=== PATIENT | female | born 1965 | race Caucasian/White ===

== ENCOUNTER 2016-07-11 17:10 | Emergency (ER) | payer OTHER, MEDICAID ==
[2016-07-11 17:33] VITALS: TEMP 98
[2016-07-11] MEDS ORDERED: NS 1,000 ML IV ONE (17:47)
[2016-07-11 17:56] LABS: % IMMATURE GRANULYOCYTES 0.9 % (0.0-1.1); ABSOLUTE IMMATURE GRANULOCYTES 0.06 10^3/uL (0.00-0.10); ADD DIFF? NO; ADD MORPH? NO; ADD SCAN? NO; ATYPICAL LYMPHOCYTE FLAG 10 (0-99); FRAGMENT RBC FLAG 0 (0-99); HEMATOCRIT 57.4 % (38.0-47.0); HEMOGLOBIN 19.8 g/dL (12.6-16.3); LEFT SHIFT FLG 0 (0-99); LIPEMIA HEMOLYSIS FLAG 90 (0-99); MEAN CELL HEMOGLOBIN 35.4 pg (27.9-34.1); MEAN CELL HEMOGLOBIN CONCENTR. 34.5 g/dL (32.4-36.7); MEAN CELL VOLUME 102.5 fL (81.5-99.8); MEAN PLATELET VOLUME 9.5 fL (8.7-11.7); PLATELET CLUMPS FLAG 0 (0-99); PLATELET COUNT 342 10^3/uL (150-400); RED CELL DISTRIBUTION WIDTH 13.6 % (11.5-15.2)
--- NOTE | 2016-07-11 18:04 | CPEKG ---
Heart Rate: 78 RR Interval: 769 P-R Interval: 144 QRSD Interval: 78 QT Interval: 408 QTC Interval: 465 P [place]: 48 QRS [place]: 76 T Wave [place]: 13 EKG Severity - ABNORMAL ECG - EKG Impression: SINUS RHYTHM EKG Impression: CONSIDER LEFT VENTRICULAR HYPERTROPHY EKG Impression: BORDERLINE INFERIOR Q WAVES Electronically Signed By: Fabrice Hall 13-Jul-2016 19:17:36
[2016-07-11 18:07] LABS: INR 0.95 (0.83-1.16); PROTIME(PATIENT) 12.5 SEC (12.0-15.0)
[2016-07-11 18:08] LABS: APTT 36.3 SEC (23.0-38.0)
[2016-07-11 18:14] VITALS: BP 151/78; PULSE 85; RESP 18
[2016-07-11 18:16] LABS: ALANINE AMINOTRANSFERASE 21 IU/L (9-52); ALBUMIN 4.4 g/dL (3.5-5.0); ALKALINE PHOSPHATASE 76 IU/L (38-126); ANION GAP 12 mEq/L (8-16); ASPARTATE AMINOTRANSFERASE 17 IU/L (14-46); BILIRUBIN,TOTAL 0.9 mg/dL (0.1-1.4); BILIRUBIN-CONJUGATED 0.4 mg/dL (0.0-0.5); BILIRUBIN-UNCONJUGATED 0.5 mg/dL (0.0-1.1); CALCIUM 9.8 mg/dL (8.5-10.4); CARBON DIOXIDE 28 mEq/l (22-31); CHLORIDE 103 mEq/L (97-110); CREATININE 0.7 mg/dL (0.6-1.0); GLOMERULAR FILTRATION RATE > 60; GLUCOSE 95 mg/dL (70-100); POTASSIUM 3.8 mEq/L (3.5-5.2); SODIUM 143 mEq/L (134-144); TOTAL PROTEIN 7.5 g/dL (6.3-8.2)
[2016-07-11 18:22] LABS: TROPONIN I < 0.012 ng/mL (0-0.034)
--- NOTE | 2016-07-11 19:06 | DX ---
PA and Lateral Chest History: Shortness of breath.. Comparison: Thoracic spine June 29, 2015, PA and lateral chest November 12, 2014. Findings: There is mild peribronchial thickening with basilar atelectasis without focal consolidation . There is no pneumothorax or pleural effusion. There is mild cardiomegaly without significant pulmon tracy vascular congestion. Mild degenerative change is present in the spine. Cervical fusion hardware i s incompletely visualized. Impression: 1. Bronchitis with mild basilar atelectasis. 2. Mild cardiomegaly.
--- NOTE | 2016-07-11 19:20 | CT ---
CT Abdomen and Pelvis, Without Contrast Indication: Abdominal bloating and distention. Technique: Multidetector helical CT imaging was performed from the kidneys to the urinary bladder, w ithout contrast. Dose reduction techniques were utilized. IV contrast was not administered due to i odinated contrast ALLERGY. Findings: No ascites, lymphadenopathy, mass, or pneumoperitoneum. The bowel gas pattern is normal, with the exception of moderate constipation. The appendix appears t o be surgically absent, with suture material along the medial aspect of the cecum. The noncontrast liver and spleen are normal size. The pancreas, gallbladder, adrenal glands, and kid neys are normal. No hydronephrosis, nephrolithiasis, or ureteral calculi. The urinary bladder is no rmal. The uterus is surgically absent versus atrophic. No adnexal mass. The heart size is normal. The lung bases have minimal posterior dependent atelectasis. The abdomina l aorta is normal caliber, with mild calcified plaque. Mild degenerative disk disease is present at L1-L2. No bone lesion or pars defect. IMPRESSION: 1. No ascites, lymphadenopathy, mass, or localized intraabdominal inflammatory process. 2. Normal noncontrast solid organs. No evidence of biliary obstruction. 3. Constipation. Comment: The case was discussed with Dr. De at 7:00 p.m. on July 11, 2016. Attention: This CT examination is specifically designed to evaluate patients who are clinically susp ected of having acute obstructive uropathy. This examination does not use radiographic contrast, and as such, provides only a limited evaluation of the abdomen, pelvis and retroperitoneum. If there i s further clinical suspicion for pathological conditions other than obstructive uropathy, a complete CT evaluation of the abdomen and pelvis utilizing intravenous, oral, and rectal contrast should be co nsidered. E:RH/amm
--- NOTE | 2016-07-11 19:53 | UCPHY ---
H & P Patient Type: Established Chief Complaint Nursing Narrative: sent from Dr. Dover office for R/O SBO/ Pancreatitis/Hepitis/GB - C/O RUQ pain with bloating/Full feeling/not feeling well with michelle colored stools x 1.5 wks- told she would be admited to hospital Time Seen by Provider: 07/11/16 17:31 HPI/ROS: CHIEF COMPLAINT: Multiple complaints, referred here from Dr. Nena Beatty's office HISTORY OF PRESENT ILLNESS: This is a 51-year-old female with history of pulmonary embolisms on Xarelto, history of chronic back pain, hyperlipidemia, COPD, O2 dependency who continue smoking, and hysterectomy who went to see her primary care physician for routine check today. She did report to her physician that she was complaining of right upper quadrant discomfort, bloating , generalized abdominal pain, and rust colored stools. Patient was referred to urgent care for further evaluation to include potential evaluation for hepatitis , pancreatitis, or bowel obstruction. Patient denies any fevers or chills. She does report shortness of breath with dyspnea on exertion and orthopnea. She reports peripheral edema although not present today. No palpitations, headache, lightheadedness, or diarrhea. Patient tells me she continues to smoke and does not wear her home O2. REVIEW OF SYSTEMS: Aside from elements discussed in the HPI, a comprehensive 10-point review of systems was reviewed and is negative. PAST MEDICAL HISTORY: Chronic back pain, hyperlipidemia, COPD, hysterectomy, pulmonary embolisms SOCIAL HISTORY: Smoker. Denies alcohol use VITAL SIGNS Reviewed by me. o2 sats as low as 77% on room air. Patient reports that she is supposed to wear between 2 L at home, on 2 L O2 sat is 94% GENERAL: Chronically ill-appearing. HEENT: Atraumatic. Eyes: No icterus, no injection. Mouth: Very dry mucous membranes. No erythema or lesions. Neck: supple with no adenopathy. LUNGS: Clear to auscultation bilaterally, no wheezes, rhonchi or rales. CARDIAC: Regular rate and rhythm, no rubs, murmurs or gallops. ABDOMEN: Soft, slightly distended, diffusely tender throughout, no guarding or rebound. No fluid wave appreciated by myself. BACK: No CVA tenderness. EXTREMITIES: No trauma. No edema. Range of motion is normal throughout. NEURO: Alert and oriented, grossly nonfocal. SKIN: Warm and dry, no rash. PSYCHIATRIC: [Normal mentation, no agitation. - Personal History Current Tetanus Diphtheria and Acellular Pertussis (TDAP): Yes Tetanus Vaccine Date: WITHIN 10 YRS - Medical/Surgical History Hx Asthma: Yes Hx Chronic Respiratory Disease: Yes Hx Diabetes: No Hx Cardiac Disease: No Hx Renal Disease: No Hx Cirrhosis: No Hx Alcoholism: No Hx HIV/AIDS: No Hx Splenectomy or Spleen Trauma: No Other PMH: Chronic pain. COPD,bipolar, hypertension, hyperlipidemia, hysterectomy, with a surgery, lower extremity DVT with PE's. appendectomy, angiograms - Family History Significant Family History: No pertinent family hx - Social History Smoking Status: Current every day smoker Constitutional: Initial Vital Signs Temperature (C) 36.6 C 07/11/16 17:15 Heart Rate 90 07/11/16 17:15 Respiratory Rate 22 H 07/11/16 17:15 Blood Pressure 132/108 H 07/11/16 17:15 O2 Sat (%) 88 L 07/11/16 17:15 O2 Delivery Mode Room Air O2 (L/minute) 2 Allergies/Adverse Reactions: morphine Allergy (Unknown, Verified 06/29/15 19:46) Iodinated Contrast Media - Oral and Allergy (Verified 06/29/15 19:46) Sulfa (Sulfonamide Antibiotics) Allergy (Verified 06/29/15 19:46) Home Medications: Medication Instructions Recorded lamOTRIGine [LamICTAL] 07/13/11 Albuterol Sulfate [Ventolin] 5 mg IH 03/13/12 Fluticasone/Salmeter 250/50Mcg 1 puffs IH BIDI 03/13/12 [Advair] Warfarin Sodium [Coumadin 5MG (RX)] 5 mg PO DAILY16 03/13/12 oxyCODONE CR [Oxycontin] 80 mg 08/04/12 oxyCODONE IR [Oxycodone HCl Ir] 30 mg 08/04/12 Captopril 10/18/14 Gemfibrozil 10/18/14 Cymbalta 30 MG (RX) 06/29/15 Ranitidine HCl 07/11/16 Medical Decision Making - Diagnostics Imaging: Results: CT scan of the abdomen pelvis was obtained. I viewed the images independently on the PACS system. I discussed the results of the study with the radiologist. Impression: No hepatomegaly or splenomegaly, no bowel obstruction, no evidence for ovarian carcinoma, no ascites. Please see the full radiology report. X-ray: Chest x-ray was obtained. I viewed the images myself on the PACS system. My interpretation of the images is: Mild cardiomegaly, no evidence for congestive failure. The radiologist interpretation is pending at this time. I discussed the x-ray findings with the patient. ED Course/Re-evaluation: 51-year-old female presenting reporting that she was referred by Dr. Nena Beatty. Patient's primary complaint is of abdominal pain and she is concerned that Dr. Beatty noted jaundice. Patient had IV placed. Laboratory evaluation demonstrates a negative troponin, normal BMP, given normal lipase, normal liver function tests, normal kidney function, hemoglobin hematocrit significantly elevated secondary to the patient' s chronic hypoxemia. CT scan demonstrates no acute findings other than constipation. I discussed the CT results with the patient. I feel the patient is safe to be discharged home. She should follow up with Dr. Nena Beatty. She was instructed to use magnesium citrate for her constipation. I discussed with the patient the importance of wearing her O2. I explained that her elevated hemoglobin and hematocrit put her at significant risk for strokes, TIAs , heart attacks, and other unforeseen complications. Please see the discharge instructions. Differential Diagnosis: After obtaining the patient's history and performing an examination, differential diagnosis considered included but was not limited to cholecystitis , gastritis, pancreatitis, hepatitis, electrolyte abnormalities, ascites, liver failure, constipation and other causes. - Data Points Laboratory Results: Laboratory Results 07/11/16 17:50 07/11/16 17:50 07/11/16 17:50 WBC 7.03 10^3/uL (3.80-9.50) RBC 5.60 H 10^6/uL (4.18-5.33) Hgb 19.8 H g/dL (12.6-16.3) Hct 57.4 H % (38.0-47.0) MCV 102.5 H fL (81.5-99.8) MCH 35.4 H pg (27.9-34.1) MCHC 34.5 g/dL (32.4-36.7) RDW 13.6 % (11.5-15.2) Plt Count 342 10^3/uL (150-400) MPV 9.5 fL (8.7-11.7) Neut % (Auto) 45.1 % (39.3-74.2) Lymph % (Auto) 41.0 % (15.0-45.0) [place] % (Auto) 8.5 % (4.5-13.0) Eos % (Auto) 3.6 % (0.6-7.6) Baso % (Auto) 0.9 % (0.3-1.7) Nucleat RBC Rel Count 0.0 % (0.0-0.2) Absolute Neuts (auto) 3.18 10^3/uL (1.70-6.50) Absolute Lymphs (auto) 2.88 10^3/uL (1.00-3.00) Absolute Monos (auto) 0.60 10^3/uL (0.30-0.80) Absolute Eos (auto) 0.25 10^3/uL (0.03-0.40) Absolute Basos (auto) 0.06 10^3/uL (0.02-0.10) Absolute Nucleated RBC 0.00 10^3/uL (0-0.01) Immature Gran % 0.9 % (0.0-1.1) Immature Gran # 0.06 10^3/uL (0.00-0.10) PT 12.5 SEC (12.0-15.0) INR 0.95 (0.83-1.16) APTT 36.3 SEC (23.0-38.0) Sodium 143 mEq/L (134-144) Potassium 3.8 mEq/L (3.5-5.2) Chloride 103 mEq/L (97-110) Carbon Dioxide 28 mEq/l (22-31) Anion Gap 12 mEq/L (8-16) BUN 19 mg/dL (7-23) Creatinine 0.7 mg/dL (0.6-1.0) Estimated GFR > 60 Glucose 95 mg/dL (70-100) Calcium 9.8 mg/dL (8.5-10.4) Total Bilirubin 0.9 mg/dL (0.1-1.4) Conjugated Bilirubin 0.4 mg/dL (0.0-0.5) Unconjugated Bilirubin 0.5 mg/dL (0.0-1.1) AST 17 IU/L (14-46) ALT 21 IU/L (9-52) Alkaline Phosphatase 76 IU/L (38-126) Troponin I < 0.012 ng/mL (0-0.034) NT-Pro-B Natriuret Pep 23 pg/mL (0-125) Total Protein 7.5 g/dL (6.3-8.2) Albumin 4.4 g/dL (3.5-5.0) Lipase 22.0 L IU/L (23-300) Medications Given: Discontinued Medications Sodium Chloride (Ns) 1,000 mls @ 0 mls/hr IV ONCE ONE PRN Reason: Wide Open Stop: 07/11/16 17:48 Last Admin: 07/11/16 18:08 Dose: 1,000 mls Magnesium Citrate (Magnesium Citrate) 300 ml PO ONCE ONE Stop: 07/11/16 19:56 Last Admin: 07/11/16 19:58 Dose: 300 mg Departure - Departure Disposition: Home, Routine, Self-Care Clinical Impression: Abdominal pain, Bloating, Constipation Condition: Good Instructions: Constipation (ED), High Fiber Diet (ED) Additional Instructions: There is no sign of fluid in your abdomen on the CT scan. The labs do not indicate any pancreatitis, or hepatitis. Your CT scan does demonstrate constipation. Please take the magnesium sulfate as directed. Drink half the bottle tomorrow morning. If you do not have significant amount of stool output in 4 hours, you may drink the other half. Your labs are quite concerning for a very high hemoglobin and hematocrit. This is most likely due to the fact that you ARE not wearing your oxygen and are hypoxic most of the time. You understand the importance of wearing your oxygen. Very high hemoglobin hematocrit can lead to multiple medical problems including heart attacks and strokes. DO NOT WEAR OXYGEN IF/WHEN YOU ARE SMOKING. Referrals: Nena Beatty MD [Primary Care Provider] - As per Instructions - PQRS PQRS Measurement: 134: Depression screening and followup, PRIME AGOSTO-PHQ2 (12 years and older) Over the last 2 weeks, how often have you been bothered by any of the following problems? 1. Feeling down, depressed, or hopeless? 2. Little interest or pleasure in doing things? Patient answered no to both 1 and 2 130: Documentation of medications. Reviewed all patient medications, doses, route and frequency. 226: Do you smoke? Yes, counseled to stop. 47: 65 and older: Advanced care planning. Patient refused. 51: 18 years old and older with diagnosis of COPD, spirometry performance. Spirometry not performed; equipment not available. 52: 18 years old and older with COPD and symptoms of COPD or FEV1<60% predicted prescribed a B Agonist. Spirometry not performed; equipment not available.
[2016-07-11] MEDS ORDERED: MAGNESIUM CITRATE 300 ML BOTTLE PO ONE (19:55)
[2016-07-11 20:02] VITALS: O2SAT 88
== END 2016-07-11 19:58 | disposition home or self-care (01) ==
LOC: CED 17:10
DX: K59.00 Constipation, unspecified (principal); R10.11 Right upper quadrant pain; M54.9 Dorsalgia, unspecified; E78.5 Hyperlipidemia, unspecified; J44.9 Chronic obstructive pulmonary disease, unspecified; Z72.0 Tobacco use; Z86.711 Personal history of pulmonary embolism
CPT/HCPCS: 71020; 74176; 93005; 96360; G0463; 80048-PO; 80076-PO; 83690-PO; 83880-PO; 84484-PO; 85025-PO; 85610-PO; 85730-PO

== ENCOUNTER → 2016-12-05 | Outpatient (CLI) | payer OTHER, MEDICAID | LOC: CIMAGING 13:53 | PROVIDERS: ATTEND Family Medicine | DX: Z12.31 Encounter for screening mammogram for malignant neoplasm of breast (principal); M50.30 Other cervical disc degeneration, unspecified cervical region; M99.71 Connective tissue and disc stenosis of intervertebral foramina of cervical region; M89.38 Hypertrophy of bone, other site | CPT/HCPCS: 72125-PO; G0202 ==

== ENCOUNTER → 2017-04-18 | Outpatient (CLI) | payer OTHER, MEDICAID | LOC: CIMAGING 11:45 | PROVIDERS: ATTEND Family Medicine | DX: R91.8 Other nonspecific abnormal finding of lung field (principal) | CPT/HCPCS: 71020-PO ==

== ENCOUNTER 2017-07-04 17:25 | Inpatient (IN) | payer OTHER, MEDICAID ==
[2017-07-04] MEDS ORDERED: NS 1,000 ML IV ONE (18:05)
[2017-07-04] MEDS ORDERED: METOCLOPRAMIDE 10 MG/2 ML VIAL IVP ONE (18:05)
--- NOTE | 2017-07-04 18:11 | EDPHY ---
H & P Stated Complaint: pt has back issues with increased neuro sx over the last few weeks Time Seen by Provider: 07/04/17 17:55 HPI/ROS: CHIEF COMPLAINT: Whole body pain HISTORY OF PRESENT ILLNESS: The patient is a 52-year-old female who was sent by Dr. Capone from Neurosurgery for an MRI of her spine. The patient has a history of chronic pain and bipolar and cervical stenosis status post fusion in 2013. She reports that she began falling frequently in December and has buckling of her right knee and weakness. She saw her primary DrJoaquín who ordered a CT scan of her neck in November. No significant injuries were found. She states that her symptoms have persisted since and she occasionally has some incontinence as well. Today she was seen at the [facility] and Dr. Capone felt that she had weakness in all 4 extremities with decreased reflexes and trouble walking. Patient denies fevers or chills or sweats. No chest pain or shortness of breath. She does have a headache which she states happens very frequently. REVIEW OF SYSTEMS: Constitutional: denies: chills, fever, recent illness, recent injury EENTM: denies: blurred vision, double vision, nose congestion Respiratory: denies: cough, shortness of breath Cardiac: denies: chest pain, irregular heart rate, lightheadedness, palpitations Gastrointestinal/Abdominal: denies: abdominal pain, diarrhea, nausea, vomiting, blood streaked stools Genitourinary: denies: dysuria, frequency, hematuria, pain Musculoskeletal: See HPI Skin: denies: lesions, rash, jaundice, bruising Neurological: See HPI Hematologic/Lymphatic: denies: blood clots, easy bleeding, easy bruising Immunologic/allergic: denies: HIV/AIDS, transplant EXAM: GENERAL: no acute distress. HEAD: Atraumatic, normocephalic. EYES: Pupils equal round and reactive to light, extraocular movements intact, sclera anicteric, conjunctiva are normal. ENT: TMs normal, nares patent, oropharynx clear without exudates. Moist mucous membranes. NECK: Normal range of motion, supple without lymphadenopathy or JVD. LUNGS: Breath sounds clear to auscultation bilaterally and equal. No wheezes rales or rhonchi. HEART: Regular rate and rhythm without murmurs, rubs or gallops. ABDOMEN: Soft, nontender, normoactive bowel sounds. No guarding, no rebound. No masses appreciated. BACK: No CVA tenderness, no spinal tenderness, step-offs or deformities EXTREMITIES: Normal range of motion, no pitting or edema. No clubbing or cyanosis. NEUROLOGICAL: Cranial nerves II through XII grossly intact. Normal speech, unsteady gait favoring right knee. 4/5 strength diffusely, normal sensation PSYCH: Normal mood, normal affect. SKIN: Warm, dry, normal turgor, no visible rashes or lesions. Source: Patient Exam Limitations: No limitations - Personal History LMP (Females 10-55): Hysterectomy Current Tetanus Diphtheria and Acellular Pertussis (TDAP): Yes Tetanus Vaccine Date: WITHIN 10 YRS - Medical/Surgical History Hx Asthma: Yes Hx Chronic Respiratory Disease: Yes Hx Diabetes: No Hx Cardiac Disease: No Hx Renal Disease: No Hx Cirrhosis: No Hx Alcoholism: No Hx HIV/AIDS: No Hx Splenectomy or Spleen Trauma: No Other PMH: Chronic pain. COPD,bipolar, hypertension, hyperlipidemia, hysterectomy, PE. appendectomy, cervical fusion - Family History Significant Family History: No pertinent family hx - Social History Smoking Status: Current every day smoker Alcohol Use: Sober Drug Use: None Constitutional: Initial Vital Signs Temperature (C) 36.8 C 07/04/17 17:30 Heart Rate 95 07/04/17 17:30 Respiratory Rate 18 07/04/17 17:30 Blood Pressure 166/115 H 07/04/17 17:30 O2 Sat (%) 93 07/04/17 17:30 O2 Delivery Mode Room Air Allergies/Adverse Reactions: morphine Allergy (Mild, Verified 07/07/17 10:00) Rash Iodinated Contrast- Oral and IV Dye Allergy (Verified 06/29/15 19:46) Sulfa (Sulfonamide Antibiotics) Allergy (Verified 06/29/15 19:46) Home Medications: Medication Instructions Recorded oxyCODONE CR [Oxycontin] 80 mg PO BID 08/04/12 oxyCODONE IR [Oxycodone HCl Ir] 30 mg PO Q4H PRN 08/04/12 Captopril 25 mg PO TID 10/18/14 Gemfibrozil [Lopid 600 MG (*)] 600 mg PO BIDAC 10/18/14 DULoxetine [Cymbalta 60 MG (*)] 60 mg PO DAILY 06/29/15 Ranitidine HCl [Zantac] 300 mg PO DAILY 07/11/16 Rivaroxaban [Xarelto] 20 mg PO DAILY@18 07/04/17 lamoTRIgine [Lamictal] 150 mg PO BID 07/04/17 Medical Decision Making - Diagnostics Imaging: Discussed imaging studies w/ pipe coverer Radiologist ED Course/Re-evaluation: The patient has significant spinal stenosis with cord compression and edema level 3 4. She states that she hates steroids because they gave her palpitations. I will discussed the case with Neurosurgery. 8:20 p.m. I discussed the case with Dr. Topete. He will admit the patient and requests hospitalist consult for med clearance patient is on Xarelto for history of DVT. She will have to hold this. They do not want to give her steroids. 9:00 p.m. I discussed the case with Dr. Greer who will admit to the medical service. Differential Diagnosis: Partial list of the Differential diagnosis considered include but were not limited to; cord compression, migraine, infection and although unlikely based on the history and physical exam, I also considered trauma, hematoma, dissection. Critical Care Time: Critical care time spent by me, Dr. Baker exclusive with this patient was 35 minutes, exclusive of the PA time exclusive of procedures. The organ system that was at risk was neurologic and I gave diagnosis, treatment and consultation and admission. to prevent worsening of the patient's condition - Data Points Laboratory Results: Laboratory Results 07/04/17 19:42 07/04/17 19:42 Medications Given: Dexamethasone (Decadron Injection) 4 mg IVP Q8 [facility] Stop: 07/07/17 22:01 Last Admin: 07/07/17 13:39 Dose: 4 mg Diazepam (Valium) 5 mg PO Q6HRS PRN PRN Reason: Anxiety, Able to Take PO Stop: 01/02/18 08:30 Last Admin: 07/07/17 13:18 Dose: 5 mg Duloxetine HCl (Cymbalta) 60 mg PO DAILY [facility] Stop: 01/01/18 08:59 Last Admin: 07/07/17 10:56 Dose: Not Given Famotidine (Pepcid) 20 mg PO BID [facility] Stop: 01/01/18 08:59 Last Admin: 07/07/17 10:56 Dose: Not Given Gemfibrozil (Lopid) 600 mg PO BIDAC [facility] Stop: 01/01/18 07:29 Last Admin: 07/07/17 07:38 Dose: Not Given Potassium Chloride/Sodium Chloride (Ns W/ 20 Kcl/L) 1,000 mls @ 75 mls/hr IV CONT SHEN Stop: 12/31/17 20:44 Last Admin: 07/07/17 11:44 Dose: 1,000 mls Cefazolin Sodium (Cefazolin Syringe) 2 gm in 20 mls @ 200 mls/hr IVP Q8H SHEN Stop: 07/07/17 22:05 Last Admin: 07/07/17 13:11 Dose: 20 mls Lamotrigine (Lamictal) 150 mg PO BID [facility] Stop: 01/01/18 09:44 Last Admin: 07/07/17 07:38 Dose: Not Given Lisinopril (Zestril) 10 mg PO DAILY21 [facility] Stop: 01/01/18 20:59 Last Admin: 07/06/17 20:47 Dose: 10 mg Methocarbamol (Robaxin) 750 mg PO TID [facility] Stop: 01/02/18 08:59 Last Admin: 07/07/17 07:39 Dose: Not Given Nicotine (Nicoderm Cq) 21 mg TD DAILY [facility] Stop: 12/31/17 20:44 Last Admin: 07/07/17 11:43 Dose: 21 mg Oxycodone HCl (Oxycontin) 80 mg PO BID [facility] Stop: 07/15/17 20:59 Last Admin: 07/07/17 11:08 Dose: 80 mg Oxycodone HCl (Oxycodone Ir) 30 mg PO Q3 PRN PRN Reason: Pain, Breakthrough Stop: 07/14/17 21:39 Last Admin: 07/07/17 11:07 Dose: 30 mg Discontinued Medications Acetaminophen/Aspirin/Caffeine (Excedrin Tablet) 1 each PO EDNOW ONE Stop: 07/04/17 20:37 Last Admin: 07/04/17 21:50 Dose: Not Given Bacitracin (Bacitracin Syringe) Confirm Administered Dose 100,000 units IRR .STK -MED ONE Stop: 07/07/17 07:23 Last Admin: 07/07/17 08:09 Dose: 100,000 units Chlorhexidine Gluconate (Hibiclens) Confirm Administered Dose 1 btl TP .STK-MED ONE Stop: 07/07/17 07:23 Last Admin: 07/07/17 08:45 Dose: 1 btl Fibrinogen/Thrombin (Surgiflo Matrix Kit With Thrombin) Confirm Administered Dose 8 ml TP .STK-MED ONE Stop: 07/07/17 07:23 Last Admin: 07/07/17 10:14 Dose: Not Given Sodium Chloride (Ns) 1,000 mls @ 0 mls/hr IV ONCE ONE; Wide Open PRN Reason: Protocol Stop: 07/04/17 18:06 Last Admin: 07/04/17 20:09 Dose: 1,000 mls Cefazolin Sodium (Cefazolin Syringe) 2 gm in 20 mls @ 200 mls/hr IVP ONCALL ONE PRN Reason: Protocol Stop: 07/07/17 07:05 Last Admin: 07/07/17 08:33 Dose: 20 mls Lisinopril (Zestril) 5 mg PO EDNOW ONE Stop: 07/05/17 00:51 Last Admin: 07/05/17 01:31 Dose: 5 mg Metoclopramide HCl (Reglan Injection) 10 mg IVP EDNOW ONE Stop: 07/04/17 18:06 Last Admin: 07/05/17 10:19 Dose: Not Given Midazolam HCl (Versed) 1 - 2 mg IVP ONCALL ONE Stop: 07/07/17 07:56 Last Admin: 07/07/17 08:07 Dose: 2 mg Miscellaneous Medication (Captopril [Captopril]) 25 mg PO TID SHEN Stop: 12/31/17 21:59 Last Admin: 07/05/17 10:04 Dose: Not Given Morphine Sulfate (Morphine) 1 - 4 mg IVP Q10M PRN PRN Reason: PACU, PAIN Stop: 07/07/17 10:49 Last Admin: 07/07/17 10:56 Dose: 2 mg Oxycodone HCl (Oxycontin) 80 mg PO ONCE ONE Stop: 07/05/17 01:46 Last Admin: 07/05/17 02:04 Dose: 80 mg Oxycodone HCl (Oxycodone Ir) 30 mg PO Q4H PRN PRN Reason: Pain, Breakthrough Stop: 07/14/17 21:39 Last Admin: 07/07/17 03:21 Dose: 30 mg Thrombin (Thrombin-Jmi) Confirm Administered Dose 20,000 unit TP .STK-MED ONE Stop: 07/07/17 07:23 Last Admin: 07/07/17 08:09 Dose: 20,000 unit Departure - Departure Disposition: [facility] Inpatient Acute Clinical Impression: Spinal cord compression Condition: Fair
[2017-07-04 19:53] LABS: PLATELET COUNT 292 10^3/uL (150-400)
[2017-07-04 20:02] LABS: PROTIME(PATIENT) 13.4 SEC (12.0-15.0)
[2017-07-04] MEDS ORDERED: ACETAMINOPHEN/ASA/CAFFEINE 1 EACH TAB PO ONE (20:36)
[2017-07-04] MEDS ORDERED: HYDROmorphONE/DILAUDID 1 MG/ML INJ IVP PRN (20:38)
[2017-07-04] MEDS ORDERED: ONDANSETRON 4 MG/2 ML VIAL IVP PRN (20:38)
[2017-07-04] MEDS ORDERED: ACETAMINOPHEN 325 MG TAB PO PRN (20:38)
[2017-07-04] MEDS ORDERED: ONDANSETRON DISINTEGRATING 4 MG TAB PO PRN (20:38)
[2017-07-04] MEDS: NS W/ 20 KCl/L 1,000 ML IV SCH (22:22)
[2017-07-04] MEDS: CAPTOPRIL 25 MG PO SCH (23:36)
[2017-07-05] MEDS ORDERED: LISINOPRIL 5 MG TAB PO ONE (00:50)
[2017-07-05] MEDS ORDERED: oxyCODONE CR 80 MG TAB PO ONE (01:45)
--- NOTE | 2017-07-05 02:53 | PDHOSCONS ---
Hospitalist Consult Hospitalist Consult: Hospitalist Consultation Date of consultation: 07/04/17 Reason for consultation: pre-op evaluation and medical management Consult requested by Dr. Antonio Source - patient initially provides history and then becomes increasingly irritated during interview and refers me to her EMR. She also declines in depth exam and rolls over to go to sleep. Case discussed with accepting provider and EMR reviewed. CC - arm/leg weakness and pain HPI - 52 yo F with pmx significant for hx spinal stenosis s/p cervical fusion 2013, bipolar disorder, chronic back pain, COPD, HTN, HLD and a hx of recurrent postop PE x3 episodes currently on xarelto who presents to the ED from Dr. Antonio's office with complaints of worsening weakness and pain since November. history of recurrent falls with complaint of legs falling out from under her. Patient denies all other symptoms except that she is tired and wants to sleep. Patient reported to ED provider that she has had occasional urinary incontinence. She has had no episodes since arrival to the hospital and is complaining that she needs to get up to void. Reviewed with the patient regarding her history of PEs. She reports that she has had 3 in her lifetime all of which have always been postoperative. Patient reports last PE occurred after her cervical spine fusion and she has been on Xarelto. She reports her last dose was taken at 5:00 p.m. on Sunday evening. Patient without any history of bleeding on anticoagulation. ROS: Reviewed, Negative except as noted above. Allergies: Morphine, iodine contrast, sulfa Home medications: oxyCODONE CR [Oxycontin] 80 mg PO BID PRN 08/04/12 oxyCODONE IR [Oxycodone Ir (*)] 30 mg PO Q4H PRN 08/04/12 Captopril 25 mg PO TID 10/18/14 Gemfibrozil [Lopid 600 MG (*)] 600 mg PO BIDAC 10/18/14 DULoxetine [Cymbalta 60 MG (*)] 60 mg PO DAILY 06/29/15 Ranitidine HCl [Zantac] 300 mg PO DAILY 07/11/16 Rivaroxaban [Xarelto] 20 mg PO DAILY@18 07/04/17 lamoTRIgine [Lamictal] 150 mg PO BID 07/04/17 Active Medications Generic Name Dose Route Start Last Admin Trade Name Freq PRN Reason Stop Dose Admin Acetaminophen 650 mg 07/04/17 20:38 Tylenol PO 12/31/17 20:37 Q4HRS PRN Pain, Mild/Fever, Can Take PO Duloxetine HCl 60 mg 07/05/17 09:00 Cymbalta PO 01/01/18 08:59 DAILY [facility] Famotidine 20 mg 07/05/17 09:00 Pepcid PO 01/01/18 08:59 BID SHEN Gemfibrozil 600 mg 07/05/17 07:30 Lopid PO 01/01/18 07:29 BIDAC SHEN Hydromorphone HCl 0.2 - 0.4 mg 07/04/17 20:38 Dilaudid IVP 07/14/17 20:37 Q4HRS PRN Pain, Severe Unable to Take PO Potassium Chloride/Sodium Chloride 1,000 mls @ 75 mls/hr 07/04/17 20:45 07/04 22:22 Ns W/ 20 Kcl/L IV 12/31/17 20:44 1,000 mls CONT SHEN Administration Miscellaneous Medication 25 mg 07/04/17 22:00 07/04/17 23:36 Captopril [Captopril] PO 12/31/17 21:59 Not Given TID [facility] Miscellaneous Medication 150 mg 07/05/17 09:00 Lamotrigine [Lamictal] PO 01/01/18 08:59 BID [facility] Nicotine 21 mg 07/04/17 20:45 Nicoderm Cq TD 12/31/17 20:44 DAILY [facility] Ondansetron HCl 4 mg 07/04/17 20:38 Zofran IVP 12/31/17 20:37 Q4HRS PRN Nausea/Vomiting, Can't Take PO Ondansetron HCl 4 mg 07/04/17 20:38 Zofran Odt PO 12/31/17 20:37 Q4HRS PRN Nausea/Vomiting, Use 1st Oxycodone HCl 30 mg 07/04/17 21:40 07/04/17 22:22 Oxycodone Ir PO 07/14/17 21:39 30 mg Q4H PRN Administration Pain, Breakthrough Discontinued Medications Generic Name Dose Route Start Last Admin Trade Name Zachary PRN Reason Stop Dose Admin Acetaminophen/Aspirin/Caffeine 1 each 07/04/17 20:36 07/04/17 21:50 Excedrin Tablet PO 07/04/17 20:37 Not Given EDNOW ONE Sodium Chloride 1,000 mls @ 0 mls/hr 07/04/17 18:05 07/04/17 20:09 Ns IV 07/04/17 18:06 1,000 mls ONCE ONE Administration Protocol Wide Open Lisinopril 5 mg 07/05/17 00:50 07/05/17 01:31 Zestril PO 07/05/17 00:51 5 mg EDNOW ONE Administration Metoclopramide HCl 10 mg 07/04/17 18:05 Reglan Injection IVP 07/04/17 18:06 EDNOW ONE Oxycodone HCl 80 mg 07/05/17 01:45 07/05/17 02:04 Oxycontin PO 07/05/17 01:46 80 mg ONCE ONE Administration PMHx: History of recurrent PE postoperatively x3 currently on Xarelto. Bipolar disorder. Spinal stenosis status post cervical fusion. Chronic back pain. Chronic narcotic use. GERD. HTN. HLD. COPD without oxygen dependence. Headaches. PSHx: Hysterectomy, cervical spine fusion, appendectomy, right ankle. FHx: Patient reports she is adopted. She does not have any children. Does not know family history. SHx: Patient lives alone. She smoked 2 packs per day for the past 15 years at least. She denies any use of alcohol or drugs. COR: Patient desires to be a full code. She acknowledges if emergent need for intubation that it should be done however she does not want an ET tube for a prolonged period rather, she would want a tracheostomy after having experienced intubation postoperatively. Physical exam: Selected Entries 07/04/17 07/04/17 17:30 23:58 Blood Pressure Automatic Method Heart Rate 95 73 Respiratory 18 20 Rate O2 Sat (%) 93 93 Temperature (C) 36.8 C Blood Pressure 166/115 H 155/104 H Mean Arterial 132 H 121 H Pressure (MAP) O2 (L/minute) 2 O2 Delivery Room Air Nasal Cannula Mode Temperature Oral Source General: NAD. Adult female is lying quietly in bed asleep. She wakes easily to name. Patient able to sit up independently she struggles with her pillow during my visit to become comfortable to fall back asleep. Skin: No apparent rashes or sores on exposed extremities. Normal warmth and color. Head: NC/AT ENT: Mucous membranes moist. No nasal discharge. Eyes: Limited exam secondary to patient cooperation, extraocular muscles are grossly intact however. Pupils are equal round and symmetric. No scleral icterus or conjunctival injection. CV: Regular rate and rhythm no murmurs rubs or gallops. Respiratory: Lungs are clear to auscultation bilaterally no wheezes rales or rhonchi. Unlabored breathing. GI: Positive bowel sounds soft obese abdomen. Nontender to palpation. No rebound guarding or masses appreciated. : No suprapubic tenderness palpation, no Badillo catheter in place. Musculoskeletal: Patient with some generalized weakness she is a little unsteady but able to sit up independently in the gurney. She moves all extremities. Neuro: Full neurologic exam is limited secondary to patient's cooperation. Strength as noted above slightly decreased but overall moves all extremities. Psych: Patient becomes increasingly agitated with multiple questions as she reports she has answered before and that I should look in the computer. Patient complains of needing to go to the bathroom but then rolls over falls asleep. Laboratory studies: Laboratory Tests 07/04/17 07/04/17 07/04/17 19:42 19:42 19:42 WBC 7.64 RBC 5.81 H Hgb 20.6 H* Hct 58.2 H MCV 100.2 H MCH 35.5 H MCHC 35.4 RDW 13.7 Plt Count 292 MPV 9.6 Neut % (Auto) 68.3 Lymph % (Auto) 22.9 [place] % (Auto) 6.9 Eos % (Auto) 0.9 Baso % (Auto) 0.7 Nucleat RBC Rel Count 0.0 Absolute Neuts (auto) 5.22 Absolute Lymphs (auto) 1.75 Absolute Monos (auto) 0.53 Absolute Eos (auto) 0.07 Absolute Basos (auto) 0.05 Absolute Nucleated RBC 0.00 Immature Gran % 0.3 Immature Gran # 0.02 PT 13.4 INR 1.00 Sodium 143 Potassium 4.1 Chloride 102 Carbon Dioxide 26 Anion Gap 15 BUN 12 Creatinine 0.5 L Estimated GFR > 60 Glucose 106 H Calcium 10.8 H Phosphorus 4.1 Imaging studies: Image and reports reviewed. Cervical spine MRI - C3/4 severe central canal stenosis and Bilateral neural foraminal stenosis with cord compression, cord edema 2/2 dorsal disk/osteophyte complex. previous anterior cervical diskectomies/fusion c4/5, 5/6, 6/7 Thoracic spine mri - mild degenerative disk disease. T7/8 minimal central canal stenosis without neural foraminal stenosis. Lumbar spine mri - mild/moderate degenerative disease disease L1/2, l3/4, L4/5. L3/4 mild central canal stenosis and moderate right lateral recess stenosis. Assessment/Plan: 52 yo F with hx spinal stenosis, chronic back pain, bipolar disorder, COPD with continued tobacco abuse, HTN, HLD, with history of recurrent post op PE currently on xarelto presents with worsening weakness and pain found to have cervical spine stenosis/compression. Consult for medical management and pre-op. 1. Cervical spine c3/4 severe central canal stenosis with cord compression/ edema - anticipate surgical intervention sometime tomorrow. Patient reports she has not taken her Xarelto since 07/03/2017Sunday at 5pm. Ideally would hold xarelto pre-operatively at least 2 doses (48hrs) minimum before intervention with high risk of bleeding. Historically patient reports development of PE x 3 in postop setting and she should be restarted on anticoagulation as soon as safe to do so from surgical standpoint. no previous history of bleeding. Patient unaware regarding any hypercoagulable work up/findings. No medical/ cardiac contraindications to proceeding with surgery tomorrow. 1. hx of PE on Xarelto - as above. 2. COPD without exacerbation - tobacco cessation advised. consider nicotine supplementation with patch/gum postop if needed. duoneb prn. oxygen prn. 3. benign essential HTN - BPs have been elevated particularly diastolic. captopril not on formulary will order for formulary equivalent. hydralazine prn. 4. HLD - resume statin when diet advanced. 5. chronic pain with chronic opiate therapy - as per primary team. home medication oxy ir/CR ordered. dilaudid available prn. patient may requires escalation in dosing postoperatively to achieve effective dose as she is chronically on oxy. 6. bipolar disorder - continue lamictal and cymbalta FEN - IVF while npo. electrolyte monitoring and replacement prn. PPX - SCDs as tolerated. anticoagulation on hold. pt reports last dose 07/03/17 at 5pm. COR - FULL. pt notes that if extended time requires on vent that she desires a trach placed. okay with CPR. Thank you for this consultation we will continue to follow along with you.
[2017-07-05] MEDS ORDERED: hydrALAZINE 20 MG/ML VIAL IVP PRN (04:07)
[2017-07-05] MEDS: NICOTINE 21 MG/24 HR PATCH TD SCH ×2 (05:17→09:56)
[2017-07-05 06:17] LABS: INR 1.04 (0.83-1.16); PROTIME(PATIENT) 13.8 SEC (12.0-15.0)
[2017-07-05] MEDS ORDERED: NON-FORMULARY NEW DRUG (Lamotrigine [Lamictal] 150 MG) PO SCH (09:00)
--- NOTE | 2017-07-05 09:01 | GHP ---
[f rep st] HISTORY AND PHYSICAL DATE OF ADMISSION: 07/04/2017 CHIEF COMPLAINT: Neck pain, balance issues, burning in arms and legs. HISTORY OF PRESENT ILLNESS: This is a 52-year-old female patient who had previously undergone a 2-level anterior fusion surgery with Dr. Antonio in 2012. She underwent a C4-5 and C6-7 anterior cervical diskectomy and fusion. There was a planned second stage posterior fusion, but the patient became hypoxic after the first stage of the surgery and the second stage was canceled at that time. She returned to the office for followup but was lost to follow up after her 6-week postop visit. She re-presented to Dr. Antonio's office yesterday about 5 years postoperatively. She reported that she had been falling quite a bit since November or December of last summer. She complained of burning pain in her arms and legs, worsening balance and coordination. She also admitted to several episodes of bladder incontinence. She also stated that she has loss of sensation with bowel movements. She stated her symptoms have been present since the summer. She had previously undergone a CT of the cervical spine at [facility] which did not reveal any fractures. No further cervical spine imaging had been completed since that time. The patient also admitted to smoking a few packs of cigarettes per day. She had profound weakness in her arms and legs with an unsteady gait. She was offered to be escorted to the emergency room from the office; patient declined and wished to take herself to the emergency room. We discussed with her that given her severe weakness, loss of sensation, we are concerned about severe spinal stenosis and did recommend ER evaluation. The patient then presented to the [facility] Emergency Room last evening. She underwent imaging, including MRI of the cervical, thoracic, and lumbar spine. MRI of the cervical spine showed severe spinal stenosis at C3-4 with cord signal changes. The patient has been on Xarelto and this has been held. The patient is still in the emergency room this morning. On examination, she states that she has continued severe neck pain and pain in her arms and her legs. I discussed with the patient that she is likely to require surgical intervention based on her concerning imaging findings. REVIEW OF SYSTEMS: Please see above-mentioned in the HPI. Patient denies any nausea, vomiting, bladder incontinence since being in the emergency room. FAMILY HISTORY: The patient is adopted and is unaware of any family history. ALLERGIES: To morphine, iodine contrast, and sulfa. HOME MEDICATIONS: OxyContin 80 mg twice a day, oxycodone 30 mg every 4 hours, captopril, Lopid, Cymbalta, Zantac, Xarelto, Lamictal. PAST MEDICAL HISTORY: History of recurrent PE postoperatively with 3 episodes of this occurring, now on Xarelto. Bipolar disorder, spinal stenosis, chronic back pain, chronic narcotic use, GERD, hypertension, hyperlipidemia, COPD without oxygen dependence, headaches. PAST SURGICAL HISTORY: Hysterectomy, cervical spine fusion, appendectomy, right ankle surgery. SOCIAL HISTORY: The patient lives alone. She has a sister who lives in [place]. She smokes a few packs per day of cigarettes. Denies any alcohol or drug use. PHYSICAL EXAMINATION: VITAL SIGNS: Blood pressure 141/83, heart rate 63, respirations 18, O2 sat is 90% on 2 L of oxygen via nasal cannula. Temperature is 36.7. GENERAL: This is a well-developed, well-nourished female patient. She is in no acute distress. NEUROLOGIC: Cranial nerves 2-12 are grossly intact. PERRLA. Extraocular movements are intact. Sclerae are anicteric. She has intact sensation over her face. Her facial movements are symmetric. No facial droop noted. Her tongue protrudes midline. Her palate and uvula elevate symmetrically. She has a symmetric shoulder shrug bilaterally. Motor examination of bilateral upper extremities is approximately 4/5 for bilateral deltoids, 4- out of 5 for bilateral biceps and triceps, bilateral hand reactor service operator approximately 4/5. She has hyperesthesias in her bilateral upper and lower extremities. She has brisk 3+ brachioradialis reflexes on the left. She has a Mason's present bilaterally. Motor examination of bilateral lower extremities is pain limited and is approximately 4/5 for hip flexion, flexion and extension of knee, plantar and dorsiflexion. IMPRESSION: This is a 52-year-old female patient with severe cervical spinal stenosis and profound weakness in her arms and legs with signs and symptoms consistent with myelopathy. PLAN: At this time, the patient has been admitted and will likely require surgical intervention. We have previously discussed with the patient that given her concerning weakness and stenosis she is at an increased risk of spinal cord injury/paralysis. We have held her Xarelto. The hospitalist team has been consulted to work on clearing her for surgery. She will likely require C3-4 anterior cervical diskectomy and fusion. While she is here in the hospital, will continue her home pain medications. Will work on finding OR time and determining the final surgical plan. I will touch base with Dr. Antonio , who will be seeing the patient later today to see if we can allow her to eat this morning. Once there is a bed available upstairs, will have the patient transferred upstairs out of the emergency room. Please contact the neurosurgery service with any additional questions or concerns. NEUROSURGERY ATTENDING NOTE I met with the patient in the ER. She has developed profound weakness in her arms and legs following a fall about 7 months ago and has developed urinary incontinence and some bowel issues. She underwent MRI C spine which shows adjacent level stenosis and cord signal changes. Given her clinical examination and MRI findings, I think surgery is warranted more on an urgent basis. We will get her admitted to the hospital and have medicine see her and get her boarded for surgery once her anti-coagulation has worn off. Risks and benefits of surgery versus close monitoring were discussed with the patient and she was in agreement. /[id number]/MODL MTDD
[2017-07-05] MEDS: DULoxetine 60 MG CAP PO SCH (09:54)
[2017-07-05] MEDS: GEMFIBROZIL 600 MG TAB PO SCH ×2 (09:54→17:39)
[2017-07-05] MEDS: FAMOTIDINE 20 MG TAB PO SCH ×2 (09:55→20:50)
[2017-07-05] MEDS: lamoTRIgine 100 MG TAB PO SCH ×2 (09:55→20:50)
[2017-07-05] MEDS: CAPTOPRIL 25 MG PO SCH (10:04)
--- NOTE | 2017-07-05 15:08 | HOSPPROG ---
Hospitalist Progress Note Assessment/Plan: 52 yo F with hx spinal stenosis, chronic back pain, bipolar disorder, COPD with continued tobacco abuse, HTN, HLD, with history of recurrent post op PE currently on xarelto presents with worsening weakness and pain found to have cervical spine stenosis/compression. Consult for medical management and pre-op. First encounter, chart reviewed. D/W Dr Ortiz. # Cervical spine c3/4 severe central canal stenosis with cord compression/edema - anticipate surgical intervention. Patient reports she has not taken her Xarelto since 07/03/2017Sunday at 5pm. Ideally would hold xarelto pre-operatively at least 2 doses (48hrs) minimum before intervention with high risk of bleeding. Historically patient reports development of PE x 3 in postop setting and she should be restarted on anticoagulation as soon as safe to do so from surgical standpoint. no previous history of bleeding. Patient unaware regarding any hypercoagulable work up/findings. No medical/cardiac contraindications to proceeding with surgery tomorrow. # hx of PE on Xarelto - as above. # COPD without exacerbation tobacco cessation advised. nicotine supplementation with patch/gum duoneb prn. oxygen prn. # benign essential HTN - BPs have been elevated particularly diastolic. captopril not on formulary will order for formulary equivalent. hydralazine prn. # HLD - resume statin when diet advanced. # Polycythemia chronic in the setting of smoking 3 packs per day cont supplemental oxygen # chronic pain with chronic opiate therapy - as per primary team. home medication oxy ir/CR ordered. dilaudid available prn. patient may requires escalation in dosing postoperatively to achieve effective dose as she is chronically on oxy. # bipolar disorder - continue lamictal and cymbalta # FEN regular diet # PPX - SCDs as tolerated. anticoagulation on hold. pt reports last dose 07/03/17 at 5pm. restart as soon as possible when ok with surgery # COR - FULL. pt notes that if extended time requires on vent that she desires a trach placed. okay with CPR. Subjective: Still having significant pain. Waiting for surgery. Wanting a cigarrette. Objective: Vital Signs Temp Pulse Resp BP Pulse Ox 36.7 C 84 18 163/98 H 91 L 07/05/17 08:24 07/05/17 12:33 07/05/17 12:33 07/05/17 12:33 07/05/17 12:33 Laboratory Results 07/05/17 05:50 07/05/17 05:50 PT 13.8 SEC (12.0-15.0) 07/05/17 05:50 INR 1.04 (0.83-1.16) 07/05/17 05:50 - Physical Exam Constitutional: appears nourished, chronically ill appearing, uncomfortable Eyes: PERRL, anicteric sclera, EOMI Ears, Nose, Mouth, Throat: moist mucous membranes, hearing normal, ears appear normal Cardiovascular: regular rate and rhythym, No JVD, No edema Respiratory: no respiratory distress, no rales or rhonchi, reduced air movement Gastrointestinal: normoactive bowel sounds, No tenderness, No ascites Skin: warm, normal color, No erythema Musculoskeletal: no joint effusions, pain with ROM, generalized weakness Neurologic: AAOx3 Psychiatric: interacting appropriately, not anxious, not encephalopathic, thought process linear ICD10 Worksheet Patient Problems: Problems Problem Status Onset Pulmonary embolism Active Spinal cord compression Acute
[2017-07-05] MEDS: oxyCODONE CR 80 MG TAB PO SCH (20:50)
[2017-07-05] MEDS: LISINOPRIL 10 MG TAB PO SCH (20:50)
[2017-07-06] MEDS: GEMFIBROZIL 600 MG TAB PO SCH ×2 (07:50→16:57)
--- NOTE | 2017-07-06 09:07 | NEUSURGPN ---
Assessment/Plan: A: 52 yo F with severe spinal stenosis and cord signal changes at C34, arm and leg weakness and hyperesthesias P: -NPO at midnight -Plan for C3/[address] Antonio at 8 am tomorrow, case posted with OR. 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 is not very nice and she wishes she would have gone to [facility]. Objective: AAOx3 NAD VSS MAEx4 Motor 5-/5 bilat deltoids, 4/5 bilat biceps/triceps/handgrips, poor effort. BLE 4/5 poor effort Urinary Catheter in Place: No - Physician Discussed Patient with Dr.: Antonio Neurosurgery Physical Exam - Vitals, I&O, Labs I and O 07/05/17 07/06/17 07/07/17 05:59 05:59 05:59 Output Total 150 Balance -150 Weight 74.389 kg Output: Urine (ml) 150 Toilet 150 Other: Number of Voids 2 Toilet 3 Number of Stools Toilet 1 Vital Signs Temp Pulse Resp BP Pulse Ox 36.8 C 71 16 120/81 H 100 07/06/17 07:34 07/06/17 07:34 07/06/17 07:34 07/06/17 07:34 07/06/17 07:34 Laboratory Results 07/05/17 05:50 07/05/17 05:50 ICD10 Worksheet Patient Problems: Problems Problem Status Onset Pulmonary embolism Active Spinal cord compression Acute
[2017-07-06] MEDS: lamoTRIgine 100 MG TAB PO SCH ×2 (09:17→20:48)
[2017-07-06] MEDS: DULoxetine 60 MG CAP PO SCH (09:17)
[2017-07-06] MEDS: oxyCODONE CR 80 MG TAB PO SCH ×2 (09:17→20:47)
[2017-07-06] MEDS: FAMOTIDINE 20 MG TAB PO SCH ×2 (09:17→20:47)
[2017-07-06] MEDS: METHOCARBAMOL 750 MG TAB PO SCH ×3 (09:17→20:59)
[2017-07-06] MEDS: NICOTINE 21 MG/24 HR PATCH TD SCH (09:18)
--- NOTE | 2017-07-06 11:08 | ASMTCMCOM ---
CM Note CM Note Notes: Pt admitted w/cervical cord compression, scheduled for surg tomorrow AM. She has hx of spinal stenosis, chronic pain/opiate therapy, bipolar and COPD. Pt lives alone. CM will follow post op to evaluate for dc needs. Date Signed: 07/06/2017 11:07 AM Electronically Signed By:Christy Arreola RN
[2017-07-06] MEDS: DIAZEPAM 5 MG TAB PO PRN (11:46)
--- NOTE | 2017-07-06 13:27 | HOSPPROG ---
Hospitalist Progress Note Assessment/Plan: 52 yo F with hx spinal stenosis, chronic back pain, bipolar disorder, COPD with continued tobacco abuse, HTN, HLD, with history of recurrent post op PE currently on xarelto presents with worsening weakness and pain found to have cervical spine stenosis/compression. Consult for medical management and pre-op. # Cervical spine c3/4 severe central canal stenosis with cord compression/edema - anticipate surgical intervention in am Patient reports she has not taken her Xarelto since 07/03/2017Sunday at 5pm. Ideally would hold xarelto pre-operatively at least 2 doses (48hrs) minimum before intervention with high risk of bleeding. Historically patient reports development of PE x 3 in postop setting and she should be restarted on anticoagulation as soon as safe to do so from surgical standpoint. no previous history of bleeding. Patient unaware regarding any hypercoagulable work up/findings. No medical/cardiac contraindications to proceeding with surgery tomorrow. # hx of PE on Xarelto - as above. # COPD without exacerbation tobacco cessation advised. nicotine supplementation with patch/gum duoneb prn. oxygen prn. # benign essential HTN - BPs have been elevated particularly diastolic. captopril not on formulary will order for formulary equivalent. hydralazine prn. # HLD - resume statin when diet advanced. # Polycythemia chronic in the setting of smoking 3 packs per day cont supplemental oxygen # chronic pain with chronic opiate therapy - as per primary team. home medication oxy ir/CR ordered. dilaudid available prn. patient may requires escalation in dosing postoperatively to achieve effective dose as she is chronically on oxy. # bipolar disorder - continue lamictal and cymbalta # FEN regular diet # PPX - SCDs as tolerated. anticoagulation on hold. pt reports last dose 07/03/17 at 5pm. restart as soon as possible when ok with surgery # COR - FULL. pt notes that if extended time requires on vent that she desires a trach placed. okay with CPR. #Dispo unclear, plan for OR in am will need SNF rehab after hospital course. D/W CM Subjective: Still having significant pain. Tired today. Objective: Vital Signs Temp Pulse Resp BP Pulse Ox 37.2 C 81 16 143/99 H 94 07/06/17 11:22 07/06/17 11:22 07/06/17 11:22 07/06/17 11:22 07/06/17 11:22 Laboratory Results 07/05/17 05:50 07/05/17 05:50 07/05/17 07/06/17 07/07/17 05:59 05:59 05:59 Output Total 150 Balance -150 PT 13.8 SEC (12.0-15.0) 07/05/17 05:50 INR 1.04 (0.83-1.16) 07/05/17 05:50 - Physical Exam Constitutional: appears nourished, chronically ill appearing, uncomfortable Eyes: PERRL, anicteric sclera, EOMI Ears, Nose, Mouth, Throat: moist mucous membranes, hearing normal, ears appear normal Cardiovascular: regular rate and rhythym, No JVD, No edema Respiratory: no respiratory distress, no rales or rhonchi, reduced air movement Gastrointestinal: normoactive bowel sounds, No tenderness, No ascites Skin: warm, normal color, No erythema Musculoskeletal: no joint effusions, pain with ROM, generalized weakness Neurologic: AAOx3 Psychiatric: interacting appropriately, not anxious, not encephalopathic, thought process linear ICD10 Worksheet Patient Problems: Problems Problem Status Onset Pulmonary embolism Active Spinal cord compression Acute
[2017-07-06] MEDS: LISINOPRIL 10 MG TAB PO SCH (20:47)
--- NOTE | 2017-07-06 21:50 | NEUSURGPN ---
Assessment/Plan: Addendum: I was called earlier this evening by the nurse and was informed that the patient was considering not going forward with surgery despite our recommendations. It was discussed with her again the risks of not proceeding with the surgery including risk of paralysis, continued loss of motor function, loss of bowel or bladder function. The patient will remain NPO tonight, and I will be in at 6am to talk to her and make a final decision. Should she decide to leave tonight or prior to surgery, this will be leaving AMA. I have discussed this with Dr. Antonio as well. Rubina Myers PA-C [facility] [phone] - Physician Discussed Patient with : [facility] Physical Exam - Vitals, I&O, Labs I and O 07/05/17 07/06/17 07/07/17 05:59 05:59 05:59 Output Total 150 Balance -150 Weight 74.389 kg Output: Urine (ml) 150 Toilet 150 Other: Number of Voids 2 Toilet 3 2 Number of Stools Toilet 1 Vital Signs Temp Pulse Resp BP Pulse Ox 37.1 C 79 16 148/98 H 91 L 07/06/17 19:27 07/06/17 19:27 07/06/17 19:27 07/06/17 20:47 07/06/17 19:27 Laboratory Results 07/05/17 05:50 07/05/17 05:50 ICD10 Worksheet Patient Problems: Problems Problem Status Onset Spinal cord compression Acute Pulmonary embolism Active
[2017-07-07] MEDS ORDERED: ceFAZolin 2 GM/SWFI 2 GM/20 ML SYR IVP ONE (07:00)
[2017-07-07] MEDS ORDERED: CHLORHEXIDINE GLUC HIBICLENS 118 ML BTL TP ONE (07:22)
[2017-07-07] MEDS ORDERED: SURGIFLO MATRIX KIT WITH THROMBIN 8ml TP ONE (07:22)
[2017-07-07] MEDS ORDERED: THROMBIN (BOVINE) 20,000 UNIT VIAL TP ONE (07:22)
[2017-07-07] MEDS ORDERED: BACITRACIN 50,000 UNITS/10 ML SYR IRR ONE (07:22)
--- NOTE | 2017-07-07 07:25 | NEUSURGPN ---
<Rubina Myers - Last Filed: 07/07/17 07:23> Assessment/Plan: A: 52 yo F with severe spinal stenosis and cord signal changes at C34, arm and leg weakness and hyperesthesias P: -Plan for C3/[address] Antonio at 8 am, case posted with OR. 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 Nervous about surgery making her worse. No other changes. Objective: AAOx3 NAD VSS MAEx4 Motor 5-/5 bilat deltoids, 4/5 bilat biceps/triceps/handgrips, poor effort. BLE 4/5 poor effort - Physician Discussed Patient with Dr.: Antonio Patient Seen by Dr.: [facility] Neurosurgery Physical Exam - Vitals, I&O, Labs I and O 07/06/17 07/07/17 07/08/17 05:59 05:59 05:59 Output Total 150 Balance -150 Weight 74.389 kg Output: Urine (ml) 150 Toilet 150 Other: Number of Voids 2 Toilet 3 2 Number of Stools Toilet 1 Vital Signs Temp Pulse Resp BP Pulse Ox 36.7 C 63 16 117/75 92 07/07/17 07:20 07/07/17 07:20 07/07/17 07:20 07/07/17 07:20 07/07/17 07:20 Laboratory Results 07/05/17 05:50 07/05/17 05:50 ICD10 Worksheet Patient Problems: Problems Problem Status Onset Spinal cord compression Acute Pulmonary embolism Active <Adrian Antonio - Last Filed: 07/07/17 08:03> Assessment/Plan: I met with the patient this morning. Reviewed with her the surgical goal, which is to address her C3/4 stenosis and progressive myelopathy. She understands that given her medical co-morbidities and the level of surgical access, she will have increased risk of complications including, but not limited to paralysis, cord injury, no improvement, worsening of symptoms, swallowing difficulties, stroke, , infection, bleeding, breathing difficulties, hoarse voice, pseudoarthrosis. She understands and consents have been signed. She also understands that her continued use of nicotine is a hindrance to her fusion and may require additional surgery in the future. Neurosurgery Physical Exam - Vitals, I&O, Labs I and O 07/06/17 07/07/17 07/08/17 05:59 05:59 05:59 Output Total 150 Balance -150 Weight 74.389 kg Output: Urine (ml) 150 Toilet 150 Other: Number of Voids 2 Toilet 3 2 Number of Stools Toilet 1 Vital Signs Temp Pulse Resp BP Pulse Ox 36.7 C 63 16 117/75 92 07/07/17 07:50 07/07/17 07:50 07/07/17 07:50 07/07/17 07:50 07/07/17 07:50 Laboratory Results 07/05/17 05:50 07/05/17 05:50
[2017-07-07] MEDS: GEMFIBROZIL 600 MG TAB PO SCH ×2 (07:38→18:01)
[2017-07-07] MEDS: lamoTRIgine 100 MG TAB PO SCH ×2 (07:38→20:11)
[2017-07-07] MEDS: METHOCARBAMOL 750 MG TAB PO SCH ×3 (07:39→21:57)
[2017-07-07] MEDS: oxyCODONE CR 80 MG TAB PO SCH ×2 (07:39→11:08)
[2017-07-07] MEDS ORDERED: MIDAZOLAM 2 MG/2 ML VIAL IVP ONE (07:55)
[2017-07-07] MEDS ORDERED: MIDAZOLAM 2 MG/2 ML VIAL ONE (07:59)
--- NOTE | 2017-07-07 08:02 | PDANEPAE ---
ANE History of Present Illness cervical spinal stenosis with myelopathy s/f C3/4 ACDF ANE Past Medical History - Cardiovascular History Hx Coronary Artery / Peripheral Vascular Disease: No Cardiovascular History Comment: dyslipidemia - Pulmonary History Hx COPD: Yes Hx Oxygen in Use at Home: Yes O2 in Use at Home (L/minute): 2 Hx Sleep Apnea: Yes Sleep Apnea Screening Result - Last Documented: Positive - Endocrine History Hx Diabetes: No - Neurological & Psychiatric Hx Hx Neurological and Psychiatric Disorders: Yes Neurological / Psychiatric History Comment: bipolar - Chronic Pain History Chronic Pain: Yes ANE Review of Systems Review of Systems: - Exercise capacity Exercise capacity: limited by disability ANE Patient History - Allergies Allergies/Adverse Reactions: morphine Allergy (Unknown, Verified 07/04/17 21:31) Rash Iodinated Contrast- Oral and IV Dye Allergy (Verified 06/29/15 19:46) Sulfa (Sulfonamide Antibiotics) Allergy (Verified 06/29/15 19:46) - Home Medications Home Medications: oxyCODONE CR [Oxycontin] 80 mg PO BID 08/04/12 [Last Taken 07/04/17 09:00] oxyCODONE IR [Oxycodone HCl Ir] 30 mg PO Q4H PRN 08/04/12 [Last Taken 07/04/17 14:00] Captopril 25 mg PO TID 10/18/14 [Last Taken 07/04/17 07:00] Gemfibrozil [Lopid 600 MG (*)] 600 mg PO BIDAC 10/18/14 [Last Taken 07/04/17 07: 00] DULoxetine [Cymbalta 60 MG (*)] 60 mg PO DAILY 06/29/15 [Last Taken 07/04/17] Ranitidine HCl [Zantac] 300 mg PO DAILY 07/11/16 [Last Taken 07/04/17] Rivaroxaban [Xarelto] 20 mg PO DAILY@18 07/04/17 [Last Taken 07/03/17] lamoTRIgine [Lamictal] 150 mg PO BID 07/04/17 [Last Taken 07/04/17 09:00] - NPO status NPO Status: no food or drink >8 hours NPO Since - Liquids (Date): 07/06/17 NPO Since - Solids (Date): 07/06/17 NPO Since - Solids (Time): 22:00 - Anes Hx Hx Anesthesia Complications (with details): ? collapsed lung-PE - Smoking Hx Smoking Status: Current every day smoker - Alcohol Use Alcohol Use: Sober - Family Anes Hx Family Anes Hx: none ANE Labs/Vital Signs - Labs Result Diagrams: 07/05/17 05:50 07/05/17 05:50 - Vital Signs Blood Pressure: 117/75 Heart Rate: 63 Respiratory Rate: 16 O2 Sat (%): 92 Height: 154.94 cm Weight: 74.389 kg ANE Physical Exam - Airway Neck exam: decreased ROM Mallampati Score: Class 2 Mouth exam: poor dentition - Pulmonary Pulmonary: reduced air movement, expiratory wheeze - Cardiovascular Cardiovascular: regular rate and rhythym - ASA Status ASA Status: III ANE Anesthesia Plan Anesthesia Plan: general endotracheal anesthesia Specialized Airway: video laryngoscope
[2017-07-07] MEDS ORDERED: REMIFENTANIL HCL 1 MG VIAL ONE (08:12)
[2017-07-07] MEDS ORDERED: PROPOFOL/EMULSION 500 MG/50 ML BOTTLE IV ONE (08:12)
[2017-07-07] MEDS ORDERED: fentaNYL 100 MCG/2 ML INJ ONE (08:16)
[2017-07-07] MEDS ORDERED: LIDOCAINE HCL 160 MG/4 ML LTA KIT TP ONE (08:17)
[2017-07-07] MEDS ORDERED: PETROLAT,WHT/MIN OIL/SOD CHL 3.5 GM OPHT.OINT ONE (08:22)
[2017-07-07] MEDS ORDERED: DEXAMETHASONE 4 MG/ML VIAL ONE ×2 (08:24)
[2017-07-07] MEDS ORDERED: ONDANSETRON 4 MG/2 ML VIAL ONE (08:24)
[2017-07-07] MEDS ORDERED: PHENYLEPHRINE HCL 100 MCG/ML SYR ONE (08:31)
[2017-07-07] MEDS ORDERED: METOCLOPRAMIDE 10 MG/2 ML VIAL IVP PRN (09:49)
[2017-07-07] MEDS ORDERED: DEXAMETHASONE 4 MG/ML VIAL IVP PRN (09:49)
[2017-07-07] MEDS ORDERED: NALOXONE HCL 0.4 MG/ML INJ IVP PRN (09:49)
[2017-07-07] MEDS ORDERED: MEPERIDINE 25 MG/ML SYR IVP PRN (09:49)
[2017-07-07] MEDS ORDERED: ACETAMINOPHEN 500 MG TAB PO PRN (09:49)
[2017-07-07] MEDS ORDERED: PHENYLEPHRINE HCL 100 MCG/ML SYR IVP PRN (09:49)
[2017-07-07] MEDS ORDERED: ONDANSETRON 4 MG/2 ML VIAL IVP PRN (09:49)
[2017-07-07] MEDS ORDERED: HYDROCODONE/APAP 5/325 TAB PO PRN (09:49)
[2017-07-07] MEDS ORDERED: PROMETHAZINE HCL 25 MG/ML INJ IVP PRN (09:49)
[2017-07-07] MEDS ORDERED: LABETALOL HCL 5 MG/ML 20 ML MDV IVP PRN (09:49)
[2017-07-07] MEDS ORDERED: ALBUTEROL 3 ML DEYVIAL IH PRN (09:49)
[2017-07-07] MEDS ORDERED: LR 500 ML IV PRN (09:49)
[2017-07-07] MEDS ORDERED: OXYCODONE/APAP 5/325 TAB PO PRN (09:49)
[2017-07-07] MEDS ORDERED: LACTULOSE 20 GM/30 ML UDCUP PO PRN (10:28)
[2017-07-07] MEDS ORDERED: diphenhydrAMINE 25 MG CAP PO PRN (10:28)
[2017-07-07] MEDS ORDERED: BISACODYL 10 MG SUPP PR PRN (10:28)
[2017-07-07] MEDS ORDERED: POLYETHYLENE GLYCOL 3350 17 GM PKT PO PRN (10:28)
[2017-07-07] MEDS ORDERED: MAGNESIUM HYDROXIDE 30 ML UDCUP PO PRN (10:28)
--- NOTE | 2017-07-07 10:46 | POSTOPPROG ---
Post Op Note Date of Operation: 07/07/17 Surgeon: Adrian Antonio Broach Grinder: Rubina Myers PA-C Anesthesia: GET(General Endotracheal) Pre-op Diagnosis: Cervical Cord Compression with myelopathy Post-op Diagnosis: Same Procedure: ACDF C3/4 Inf/Abcess present in the surg proc area at time of surgery?: No Depth: Organ Space SOAP Progress Note Assessment/Plan: A: 52 yo F with severe spinal stenosis and cord signal changes at C34, arm and leg weakness and hyperesthesias P: -Plan for C3/[address] Antonio - Optimize pain management- increased Oxy IR to 30mg q3 from q4 -Postop x-rays later today -No collar needed -Smoking cessation, on patch -TEDs, SCDs, holding xarelto until POD 7, Lovenox ok to start POD #3 -monitor exam -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 Antonio in postop -Please call NS with any questions or concerns Subjective: Patient stable, in PACU. In pain. Objective: AAOx3 NAD PERRL, EOMI VSS MAEx4 Motor 5-/5 bilat deltoids, 4/5 bilat biceps/triceps/handgrips, poor effort. BLE 4/5 poor effort 07/07/17 10:42 07/07/17 10:46 Objective: Vital Signs Temp Pulse Resp BP Pulse Ox 36.3 C 89 16 150/103 H 95 07/07/17 10:28 07/07/17 10:28 07/07/17 10:28 07/07/17 10:28 07/07/17 10:28 Laboratory Results 07/05/17 05:50 07/05/17 05:50 07/06/17 07/07/17 07/08/17 05:59 05:59 05:59 Output Total 150 Balance -150 PT 13.8 SEC (12.0-15.0) 07/05/17 05:50 INR 1.04 (0.83-1.16) 07/05/17 05:50
--- NOTE | 2017-07-07 10:50 | GOP ---
[f rep st] OPERATIVE REPORT DATE OF OPERATION: 07/07/2017 NEUROSURGEON: Adiran Antonio MD DIAL LATHE OPERATOR: ZHANNA Ross ANESTHESIA: General. PREOPERATIVE DIAGNOSIS: 1. C3-C4 cervical stenosis with history of prior fusion C4 through C7. 2. Myelopathy. POSTOPERATIVE DIAGNOSIS: 1. C3-C4 cervical stenosis with history of prior fusion C4 through C7. 2. Myelopathy. PROCEDURE PERFORMED: 1. Anterior arthrodesis with approach to C3-C4. 2. C3-C4 diskectomy with bilateral foraminotomies, osteophytectomies and spinal cord decompression. 3. Interbody fusion C3-C4 with a 7 mm titanium coated PEEK cage with morselized autograft and allograft. 4. Anterior cervical fusion C3-C4 with a Medtronic 17 mm ZEVO plate. 5. Use of intraoperative fluoroscopy, less than 1 hour physician time. 6. Use of neuromonitoring. 7. Use of the operating microscope. FINDINGS: per imaging ESTIMATED BLOOD LOSS: 20 mL INDICATIONS: The patient is a 52-year-old woman who is well known to in for several years who has undergone multiple anterior cervical diskectomies and fusions. She presented to our office with a several-month history of gait instability and weakness in her upper and lower extremities as well as bladder incontinence and difficulty with bowel movements. She was seen in the emergency department where imaging studies demonstrated severe spinal cord compression at C3-C4 with possible spinal cord signal changes adjacent to her prior history of fusion C4 and C7. After discussion of risks, benefits, and alternatives and after failing nonoperative interventions, we decided to proceed forth with surgery as described above. we had to wait a few days for surgery because of her anti-coagulation and medicine clearance. DESCRIPTION OF PROCEDURE: Patient was brought to the operating theater and underwent general endotracheal anesthesia without complications. She had Venodynes, RICHY hose, and appropriate lines placed by Anesthesia. Her head was placed supine on the operating table and a baseline neuromonitoring then obtained. At this point, she was then extended and another baseline obtained and she was noted to be at baseline at that point. Using lateral fluoroscopy and a spinal needle, we picked our entry point to the C3-C4 level. This was marked as a transverse incision on the right side of her neck. This area was prepped and draped in usual sterile surgical fashion. A time-out was completed per protocol. The patient received antibiotics within 1 hour of incision. The incision was taken with the scalpel blade and then, using monopolar, taken down through subcutaneous tissues to the level of platysma. The tissues were then dissected both in blunt and sharp manner to land on the anterior vertebral bodies of C3 and C4. We confirmed our level using lateral fluoroscopy. We elevated the longus colli muscles from the anterior vertebral bodies of C3 and C4 bilaterally. Lynch pins were placed into the vertebral body of C3 and C4 and C3-C4 placed into mild distraction. The microscope was brought into field to assist with microscopic dissection and to maintain illumination and magnification. Using a combination of the bur tip on the drill bit, Kerrison punches and curettes, we completed a C3-C4 diskectomy with bilateral foraminotomies and osteophytectomies. We prepared the cartilaginous endplates and measured the interbody space. We placed a 7 mm titanium coated PEEK cage filled with morselized autograft and allograft into the C3-C4 disc space. We removed the Lynch pins and drilled down the anterior osteophytes and secured a 17 mm Medtronic ZEVO plate onto the vertebral bodies of C3 and C4. AP and lateral x-rays demonstrated good placement of the hardware. The wound was irrigated copiously with bacitracin irrigation. Because there was no active bleeding, we opted not to leave a drain in place. The wound was then closed in multiple layers using Vicryl sutures to deep layers and Dermabond for the skin. The patient's wounds were dressed sterilely. She was awakened, extubated and taken to the recovery room in stable condition. There were no complications and no noted changes on neuromonitoring throughout the procedure. COMPLICATIONS: None. /[id number]/MODL MTDD
[2017-07-07] MEDS: FAMOTIDINE 20 MG TAB PO SCH ×2 (10:56→20:12)
[2017-07-07] MEDS: DULoxetine 60 MG CAP PO SCH (10:56)
[2017-07-07] MEDS: NICOTINE 21 MG/24 HR PATCH TD SCH (11:43)
[2017-07-07] MEDS: NS W/ 20 KCl/L 1,000 ML IV SCH (11:44)
--- NOTE | 2017-07-07 12:28 | POSTANESTH ---
Post Anesthetic Evaluation Cardiovascular Status: Normal, Stable Respiratory Status: Normal, Stable Level of Consciousness/Mental Status: Can Participate in Eval Pain Control: Adequate, Prn Tx Ordered Nausea/Vomiting Control: Adequate, Prn Tx Ordered Complications Possibly Related to Anesthesia: None Noted
[2017-07-07] MEDS: ceFAZolin 2 GM/SWFI 2 GM/20 ML SYR IVP SCH ×2 (13:11→21:57)
[2017-07-07] MEDS: DIAZEPAM 5 MG TAB PO PRN (13:18)
[2017-07-07] MEDS: DEXAMETHASONE 4 MG/ML VIAL IVP SCH ×2 (13:39→21:57)
[2017-07-07] MEDS ORDERED: ceFAZolin 2 GM/DEXTROSE 100 ML IV SCH (14:00)
[2017-07-07] MEDS: GABAPENTIN 300 MG CAP PO SCH ×2 (14:00→22:00)
--- NOTE | 2017-07-07 14:34 | HOSPPROG ---
Hospitalist Progress Note Assessment/Plan: 52 yo F with hx spinal stenosis, chronic back pain, bipolar disorder, COPD with continued tobacco abuse, HTN, HLD, with history of recurrent post op PE currently on xarelto presents with worsening weakness and pain found to have cervical spine stenosis/compression. Consult for medical management and pre-op. # Cervical spine c3/4 severe central canal stenosis with cord compression/edema - No collar needed holding xarelto until POD 7, Lovenox ok to start POD #3 PT/OT/[employer] Decadron 4mg in 8 hrs, then again in 8 hrs, 2 doses total for swelling Historically patient reports development of PE x 3 in postop setting and she should be restarted on anticoagulation as soon as safe to do so from surgical standpoint. no previous history of bleeding. Patient unaware regarding any hypercoagulable work up/findings. No medical/cardiac contraindications to proceeding with surgery tomorrow. # hx of PE on Xarelto - as above. start lovenox POD #3 xarelto POD #7 # COPD without exacerbation tobacco cessation advised. nicotine supplementation with patch/gum duoneb prn. oxygen prn. # benign essential HTN - BPs have been elevated particularly diastolic. captopril not on formulary will order for formulary equivalent. hydralazine prn. # HLD - resume statin when diet advanced. # Polycythemia chronic in the setting of smoking 3 packs per day cont supplemental oxygen # chronic pain with chronic opiate therapy - as per primary team. home medication oxy ir/CR ordered. dilaudid available prn. patient may requires escalation in dosing postoperatively to achieve effective dose as she is chronically on oxy. # bipolar disorder - continue lamictal and cymbalta # FEN regular diet # PPX - SCDs as tolerated. anticoagulation on hold. # COR - FULL. pt notes that if extended time requires on vent that she desires a trach placed. okay with CPR. #Dispo will need SNF rehab after hospital course. D/W CM Subjective: Feeling well today. Pain stable with meds. Objective: Vital Signs Temp Pulse Resp BP Pulse Ox 37.3 C 77 16 131/84 H 91 L 07/07/17 11:25 07/07/17 13:25 07/07/17 13:25 07/07/17 13:25 07/07/17 13:25 Laboratory Results 07/05/17 05:50 07/05/17 05:50 07/06/17 07/07/17 07/08/17 05:59 05:59 05:59 Intake Total 650 Output Total 150 Balance -150 650 PT 13.8 SEC (12.0-15.0) 07/05/17 05:50 INR 1.04 (0.83-1.16) 07/05/17 05:50 - Physical Exam Constitutional: appears nourished, chronically ill appearing, uncomfortable Eyes: PERRL, anicteric sclera, EOMI Ears, Nose, Mouth, Throat: moist mucous membranes, hearing normal, ears appear normal Cardiovascular: No JVD, No tachycardia, No edema Respiratory: no respiratory distress, no rales or rhonchi, reduced air movement Gastrointestinal: normoactive bowel sounds, No tenderness, No ascites Skin: warm, normal color, No erythema Musculoskeletal: no joint effusions, pain with ROM, generalized weakness Neurologic: AAOx3 Psychiatric: interacting appropriately, not encephalopathic, poor insight, poor judgement ICD10 Worksheet Patient Problems: Problems Problem Status Onset Pulmonary embolism Active Spinal cord compression Acute
[2017-07-07] MEDS: SENNOSIDES/DOCUSATE SODIUM TAB PO SCH (20:12)
[2017-07-07] MEDS: LISINOPRIL 10 MG TAB PO SCH (20:13)
[2017-07-08] MEDS: GABAPENTIN 300 MG CAP PO SCH (04:35)
[2017-07-08 07:43] VITALS: BP 156/95; PULSE 82; RESP 17; TEMP 99; O2SAT 90
[2017-07-08] MEDS: SENNOSIDES/DOCUSATE SODIUM TAB PO SCH (08:31)
[2017-07-08] MEDS: NICOTINE 21 MG/24 HR PATCH TD SCH (08:31)
[2017-07-08] MEDS: oxyCODONE CR 80 MG TAB PO SCH (08:32)
[2017-07-08] MEDS: lamoTRIgine 100 MG TAB PO SCH (08:32)
[2017-07-08] MEDS: GEMFIBROZIL 600 MG TAB PO SCH (08:32)
[2017-07-08] MEDS: DULoxetine 60 MG CAP PO SCH (08:33)
[2017-07-08] MEDS: METHOCARBAMOL 750 MG TAB PO SCH (09:31)
[2017-07-08] MEDS: FAMOTIDINE 20 MG TAB PO SCH (09:31)
--- NOTE | 2017-07-08 10:29 | NEUSURGPN ---
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 Patient will likely leave -Please call NS with any questions or concerns Subjective: Patient is in good spirits this morning. She states her legs are already stronger and she can tell a difference in her arms although they are still weak. She is swallowing well. Determined to get out of hospital today. Objective: AAOx3 NAD PERRL, EOMI VSS MAEx4 Motor - Right arm weaker than left as was preop- 5-/5 bilat deltoids, 4/5 bilat biceps/triceps/handgrips, Positive hoffmans bilaterally BLE 5/5 - improved 07/07/17 10:42 07/07/17 10:46 - Physician Discussed Patient with : [facility] Physical Exam - Vitals, I&O, Labs I and O 07/07/17 07/08/17 07/09/17 05:59 05:59 05:59 Intake Total 950 Output Total 1100 Balance -150 Weight 74.389 kg Intake: Oral (ml) 350 IV Intake (ml) 600 Output: Urine (ml) 1100 Toilet 1100 Other: Number of Voids Toilet 2 3 Number of Stools Toilet 1 Vital Signs Temp Pulse Resp BP Pulse Ox 37.2 C 82 17 156/95 H 90 L 07/08/17 07:43 07/08/17 07:43 07/08/17 07:43 07/08/17 07:43 07/08/17 07:43 Laboratory Results 07/05/17 05:50 07/05/17 05:50 ICD10 Worksheet Patient Problems: Problems Problem Status Onset Spinal cord compression Acute Pulmonary embolism Active
--- NOTE | 2017-07-08 12:23 | HOSPPROG ---
Hospitalist Progress Note Assessment/Plan: 52 yo F with hx spinal stenosis, chronic back pain, bipolar disorder, COPD with continued tobacco abuse, HTN, HLD, with history of recurrent post op PE currently on xarelto presents with worsening weakness and pain found to have cervical spine stenosis/compression. Consult for medical management and pre-op. 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 no previous history of bleeding. Patient unaware regarding any hypercoagulable work up/findings. # hx of PE on Xarelto - as above. start lovenox POD #3 xarelto POD #7 # COPD without exacerbation tobacco cessation advised. nicotine supplementation with patch/gum duoneb prn. oxygen prn. # benign essential HTN - BPs have been elevated particularly diastolic. captopril not on formulary will order for formulary equivalent. hydralazine prn. # HLD - resume statin when diet advanced. # Polycythemia chronic in the setting of smoking 3 packs per day cont supplemental oxygen # chronic pain with chronic opiate therapy - as per primary team. home medication oxy ir/CR ordered. dilaudid available prn. patient may requires escalation in dosing postoperatively to achieve effective dose as she is chronically on oxy. # bipolar disorder - continue lamictal and cymbalta # FEN regular diet # PPX - SCDs as tolerated. anticoagulation on hold. # COR - FULL. pt notes that if extended time requires on vent that she desires a trach placed. okay with CPR. #Dispo will need SNF rehab after hospital course. D/W CM Pt demanding to leave. Advised she stay. Defer to NSG Subjective: Wants to leave. Pain controlled. Objective: Vital Signs Temp Pulse Resp BP Pulse Ox 37.2 C 82 17 156/95 H 90 L 07/08/17 07:43 07/08/17 07:43 07/08/17 07:43 07/08/17 07:43 07/08/17 07:43 Laboratory Results 07/05/17 05:50 07/05/17 05:50 07/07/17 07/08/17 07/09/17 05:59 05:59 05:59 Intake Total 950 Output Total 1100 Balance -150 PT 13.8 SEC (12.0-15.0) 07/05/17 05:50 INR 1.04 (0.83-1.16) 07/05/17 05:50 - Physical Exam Constitutional: appears nourished, not in pain, chronically ill appearing Eyes: PERRL, anicteric sclera, EOMI Ears, Nose, Mouth, Throat: moist mucous membranes, hearing normal, ears appear normal Cardiovascular: regular rate and rhythym, No JVD, No edema Respiratory: no respiratory distress, no rales or rhonchi, reduced air movement Gastrointestinal: normoactive bowel sounds, No tenderness, No ascites Skin: warm, normal color, No erythema Musculoskeletal: no joint effusions, pain with ROM, generalized weakness Psychiatric: not encephalopathic, anxious, agitated, poor insight, poor judgement ICD10 Worksheet Patient Problems: Problems Problem Status Onset Pulmonary embolism Active Spinal cord compression Acute
--- NOTE | 2017-07-08 16:03 | ASDISCHSUM ---
Discharge Information Plan Status: Medically Cleared to Leave: Discharge Date:07/08/2017 11:25 AM CM D/C Disposition:Against Medical Advice ADT D/C Disposition:Against Medical Advice Projected Discharge Date:07/08/2017 11:00 AM Transportation at D/C:Self Discharge Delay Reason: Follow-Up Date:07/08/2017 11:00 AM Discharge Slot: Final Diagnosis:Cervical cord compression Placement Information Referral Type:*Fpc/SNF Referral ID:[id number] Provider Name: Address 1: Phone Number: Address 2: Fax Number: City: Selection Factors: State: Patient Contact Information Contact Name:ANTHONYROSSREYNOLD Relationship:Sister Address: Home Phone: City: Alternate Phone: [facility] Code: Email: Financial Information Financial Class:Medicare Advantage Plans Primary Plan Desc:[facility] [employer] Primary Plan Number:[id number] Secondary Plan Desc:[employer] [place] Secondary Plan Number:[id number] Assessment Information [facility] CM Progress Note CM Note CM Note Notes: Pt admitted w/cervical cord compression, scheduled for surg tomorrow AM. She has hx of spinal stenosis, chronic pain/opiate therapy, bipolar and COPD. Pt lives alone. CM will follow post op to evaluate for dc needs. Date Signed: 07/06/2017 11:07 AM Electronically Signed By:Christy Arreola RN Case Management Discharge Plan Note Case Management Discharge Discharge Order Complete? Answers: No Notes: Patient left AMA Transportation Arranged Answers: Other Notes: Drove self Transport will Pick (Date 07/08/2017 12:00 AM & Time) Discharge Comments Notes: Patient reports that her sister is sick and she has to drive to [place] and take her to the hospital. Patient left AMA. Date Signed: 07/08/2017 04:01 PM Electronically Signed By:Ara Mittal LCSW Intervention Information Intervention Type:*Incorrect Registration Date of Service:07/05/2017 01:25 PM Patient Type:Observation Staff Member:PEPE Cruz, Earline Hours: Discipline: Severity: Comment:
[2017-07-10] MEDS ORDERED: ENOXAPARIN 40 MG/0.4 ML SYR SC SCH (09:00)
== END 2017-07-08 11:25 | disposition left against medical advice (07) | DRG 472 ==
LOC: OBSVTOIN 20:24 → F3N 07-05 13:01 → UNDODISIN 07-08 11:22
PROVIDERS: ADMIT Neurological Surgery; ATTEND Neurological Surgery
PROC: 0RG10A0 Fusion of Cervical Vertebral Joint with Interbody Fusion Device, Anterior Approach, Anterior Column, Open Approach (ICD-10-PCS; principal; 2017-07-07 08:00)
PROC: 4A1004G Monitoring of Central Nervous Electrical Activity, Intraoperative, Open Approach (ICD-10-PCS; principal; 2017-07-07 08:00)
DX: M48.02 Spinal stenosis, cervical region (principal); M50.00 Cervical disc disorder with myelopathy, unspecified cervical region; F31.9 Bipolar disorder, unspecified; K21.9 Gastro-esophageal reflux disease without esophagitis; I10 Essential (primary) hypertension; E78.5 Hyperlipidemia, unspecified; J44.9 Chronic obstructive pulmonary disease, unspecified; G89.29 Other chronic pain; Z72.0 Tobacco use; Z98.1 Arthrodesis status; Z86.718 Personal history of other venous thrombosis and embolism; Z79.01 Long term (current) use of anticoagulants
CPT/HCPCS: 80307; 97116-GP; 97161-GP; 97166-GO; C1713; G0480; G8987-GO-CJ; G8988-GO-CI; J0690; J1100; J2250; J2370; J2405; J2704; J3010

== ENCOUNTER 2017-07-10 12:21 | Emergency (ER) | payer OTHER, MEDICAID ==
[2017-07-10 12:37] VITALS: TEMP 98.2
--- NOTE | 2017-07-10 13:15 | EDPHY ---
H & P Stated Complaint: surgical site check, pain med refill. " i really wasnt ready to go home." Time Seen by Provider: 07/10/17 12:56 HPI/ROS: CHIEF COMPLAINT: Failure to thrive at home HISTORY OF PRESENT ILLNESS: The patient presents the ED with failure to thrive at home. The patient is status post C3/4 fusion approximately a week ago. The patient left the hospital against medical advice. She returns today by ambulance with multiple complaints. The patient reports chronic weakness which preceded her surgery. It has been difficult for her to manage her chronic pain. The patient lives remotely alone. She was unable to see her primary care provider today. She has been in consultation with her neurosurgeon who has deferred to her primary care provider for management of her pain. While in the hospital she was offered admission to a senior living facility however declined that. The patient states that she is interested in being placed in a senior living facility today secondary to her inability to effectively manage herself at home. REVIEW OF SYSTEMS: A comprehensive 10 point review of systems is otherwise negative aside from elements mentioned in the history of present illness. Source: Patient Exam Limitations: No limitations - Personal History Current Tetanus/Diphtheria Vaccine: Yes Current Tetanus Diphtheria and Acellular Pertussis (TDAP): Yes Tetanus Vaccine Date: WITHIN 10 YRS - Medical/Surgical History Hx Asthma: Yes Hx Chronic Respiratory Disease: Yes Hx Diabetes: No Hx Cardiac Disease: No Hx Renal Disease: No Hx Cirrhosis: No Hx Alcoholism: No Hx HIV/AIDS: No Hx Splenectomy or Spleen Trauma: No Other PMH: Chronic pain. COPD,bipolar, hypertension, hyperlipidemia, hysterectomy, PE. appendectomy, cervical fusion - Social History Smoking Status: Current every day smoker - Physical Exam Exam: General Appearance: Alert, no distress Eyes: Pupils equal and round no pallor or injection ENT, Mouth: Mucous membranes moist Respiratory: There are no retractions, lungs are clear to auscultation Cardiovascular: Regular rate and rhythm Gastrointestinal: Abdomen is soft and nontender, no masses, bowel sounds normal Neurological: Alert and oriented x4, 5-out of 5 strength noted all 4 extremities. Skin: Surgical incision clean dry and intact, postoperative ecchymosis noted Musculoskeletal: Neck is supple nontender Extremities: symmetrical, full range of motion Constitutional: Initial Vital Signs Temperature (C) 36.8 C 07/10/17 12:30 Heart Rate 86 07/10/17 12:30 Respiratory Rate 16 07/10/17 12:30 Blood Pressure 116/80 07/10/17 12:30 O2 Sat (%) 91 L 07/10/17 12:30 O2 Delivery Mode Nasal Cannula O2 (L/minute) 4 Allergies/Adverse Reactions: morphine Allergy (Mild, Verified 07/07/17 10:00) Rash Iodinated Contrast- Oral and IV Dye Allergy (Verified 06/29/15 19:46) Sulfa (Sulfonamide Antibiotics) Allergy (Verified 06/29/15 19:46) Home Medications: Medication Instructions Recorded Captopril 25 mg PO TID 10/18/14 Gemfibrozil [Lopid 600 MG (*)] 600 mg PO BIDAC 10/18/14 DULoxetine [Cymbalta 60 MG (*)] 60 mg PO DAILY 06/29/15 Ranitidine HCl [Zantac] 300 mg PO DAILY 07/11/16 lamoTRIgine [Lamictal] 150 mg PO BID 07/04/17 Methocarbamol [Robaxin 750 mg (*)] 750 mg PO TID #60 tab 07/08/17 Polyethylene Glycol 3350 [Miralax 17 gm PO DAILY PRN pkt 07/08/17 17 gm (*)] oxyCODONE CR [Oxycontin] 80 mg PO BID #6 tab 07/08/17 oxyCODONE IR [Oxycodone Ir (*)] 30 mg PO Q4H PRN #24 tab 07/08/17 Rivaroxaban [Xarelto] 20 mg PO DAILY@18 #0 07/12/17 Medical Decision Making ED Course/Re-evaluation: The patient presents to the ED for a variety of symptoms including difficulty manage chronic pain and generalized weakness at home. The patient initially presented requesting admission to a senior living facility. I discussed the case with the patient's regular neurosurgeon who felt this was reasonable as this had been the planned during the patient's prior hospitalization. I discussed the case with our rn case manager hospice who began evaluating possible placement options for the patient. At 4:30 p.m. the patient has decided she does not want to be admitted to the hospital or be placed in a senior living facility. The patient has dressed herself and has called for a friend to pick her up. Our rn case manager hospice did discuss the case with the patient's primary care provider and set her up with an appointment to be seen in the office tomorrow at 11:00 a.m.. - Data Points Laboratory Results: Laboratory Results 07/10/17 13:00 07/10/17 13:00 07/10/17 07/10/17 07/10/17 13:00 13:00 13:00 WBC 8.42 10^3/uL 10^3/uL (3.80-9.50) RBC 5.38 10^6/uL H 10^6/uL (4.18-5.33) Hgb 19.1 g/dL H g/dL (12.6-16.3) Hct 54.9 % H % (38.0-47.0) MCV 102.0 fL H fL (81.5-99.8) MCH 35.5 pg H pg (27.9-34.1) MCHC 34.8 g/dL g/dL (32.4-36.7) RDW 13.2 % % (11.5-15.2) Plt Count 293 10^3/uL 10^3/uL (150-400) MPV 10.9 fL fL (8.7-11.7) Neut % (Auto) 76.4 % H % (39.3-74.2) Lymph % (Auto) 14.4 % L % (15.0-45.0) [place] % (Auto) 7.7 % % (4.5-13.0) Eos % (Auto) 0.6 % % (0.6-7.6) Baso % (Auto) 0.5 % % (0.3-1.7) Nucleat RBC Rel Count 0.0 % % (0.0-0.2) Absolute Neuts (auto) 6.44 10^3/uL 10^3/uL (1.70-6.50) Absolute Lymphs (auto) 1.21 10^3/uL 10^3/uL (1.00-3.00) Absolute Monos (auto) 0.65 10^3/uL 10^3/uL (0.30-0.80) Absolute Eos (auto) 0.05 10^3/uL 10^3/uL (0.03-0.40) Absolute Basos (auto) 0.04 10^3/uL 10^3/uL (0.02-0.10) Absolute Nucleated RBC 0.00 10^3/uL 10^3/uL (0-0.01) Immature Gran % 0.4 % % (0.0-1.1) Immature Gran # 0.03 10^3/uL 10^3/uL (0.00-0.10) PT 12.6 SEC SEC (12.0-15.0) INR 0.92 (0.83-1.16) APTT 30.5 SEC SEC (23.0-38.0) Sodium 145 mEq/L mEq/L (135-145) Potassium 4.5 mEq/L mEq/L (3.5-5.2) Chloride 97 mEq/L mEq/L (97-110) Carbon Dioxide 30 mEq/l mEq/l (22-31) Anion Gap 18 mEq/L H mEq/L (8-16) BUN 17 mg/dL mg/dL (7-23) Creatinine 0.6 mg/dL mg/dL (0.6-1.0) Estimated GFR > 60 Glucose 117 mg/dL H mg/dL (70-100) Calcium 10.3 mg/dL mg/dL (8.5-10.4) Departure - Departure Disposition: Home, Routine, Self-Care Clinical Impression: Cervical stenosis of spine, Chronic pain Condition: Good Instructions: Chronic Pain (ED) Additional Instructions: 1. You have declined admission to the hospital for evaluation of possible placement in a senior living facility. 2. Please return to the emergency department should you reconsider your decision not to have placement options pursued. 3. Please follow up tomorrow as scheduled with Dr. Nena Beatty. Referrals: Nena Beatty MD [Primary Care Provider] - As per Instructions
[2017-07-10 13:27] LABS: PLATELET COUNT 293 10^3/uL (150-400)
[2017-07-10 13:35] LABS: INR 0.92 (0.83-1.16); PROTIME(PATIENT) 12.6 SEC (12.0-15.0)
[2017-07-10 14:11] VITALS: BP 96/73; PULSE 79; RESP 18; O2SAT 93
--- NOTE | 2017-07-10 16:44 | ASMTCMCOM ---
CM Note CM Note Notes: Patient presented to the ED for neck pain. Patient recently was admitted to [facility] for cervical cord compression requiring ACDF of C3-C4 on 07/07/17; pt left AMA on 07/08/17. Pt lives alone in [place], [place]. Spoke with patient and she said she is now open and willing to going to a SNF for short term rehab. When asked if she has a 1st choice or preference pt stated "whereve you can get me in, where ever takes my insurance." This CM began working on possible direct admit from ED to SNF; PASSR Level 1 was completed and triggered a Level 2 assessment (pt has a history of bipolar disorder). ED MD wants to admit patient but patient refuses and wants to go home, stating her friend Mackenzie is on her way. This CM and ED MD discussed that patient is cognitively capable of making her own decisions and so she will be discharged home. This CM called pt's PCP Dr Beatty ([phone]) office and spoke with Anna, janitor caretaker, ([phone]); she is able to get patient a follow-up appt tomorrow at 11:30am. Patient is agreeable to this and says she will make the appt. We discussed possible need for homecare assistance and homebound status; Anna says she will make a note in pt's chart to discuss this with patient during the visit. Anna will also ensure patient is provided a Rx to resume her Xarelto. CM available for further assistance. Date Signed: 07/10/2017 04:43 PM Electronically Signed By:Dyana Shanks RN
--- NOTE | 2017-07-10 16:54 | ASDISCHSUM ---
Discharge Information Plan Status:Home with No Needs Medically Cleared to Leave: Discharge Date: CM D/C Disposition:Home, Routine, Self-Care ADT D/C Disposition:Home, Routine, Self-Care Projected Discharge Date: Transportation at D/C:Friend Discharge Delay Reason: Follow-Up Date: Discharge Slot: Final Diagnosis: Placement Information Patient Contact Information Contact Name:STEVEN Relationship:Sister Address: Home Phone: City: [facility] Phone: [facility]/[employer] Code: Email: Financial Information Financial Class:Medicare Advantage Plans Primary Plan Desc:[employer] Primary Plan Number:[id number] Secondary Plan Desc:[employer] Secondary Plan Number:[id number] Assessment Information [facility] CM Progress Note CM Note CM Note Notes: Patient presented to the ED for neck pain. Patient recently was admitted to [facility] for cervical cord compression requiring ACDF of C3-C4 on 07/07/17; pt left AMA on 07/08/17. Pt lives alone in [place], [place]. Spoke with patient and she said she is now open and willing to going to a SNF for short term rehab. When asked if she has a 1st choice or preference pt stated "whereve you can get me in, where ever takes my insurance." This CM began working on possible direct admit from ED to SNF; PASSR Level 1 was completed and triggered a Level 2 assessment (pt has a history of bipolar disorder). ED MD wants to admit patient but patient refuses and wants to go home, stating her friend Mackenzie is on her way. This CM and ED MD discussed that patient is cognitively capable of making her own decisions and so she will be discharged home. This CM called pt's PCP Dr Beatty ([phone]) office and spoke with Anna, managed care coordinator, ([phone]); she is able to get patient a follow-up appt tomorrow at 11:30am. Patient is agreeable to this and says she will make the appt. We discussed possible need for homecare assistance and homebound status; Anna says she will make a note in pt's chart to discuss this with patient during the visit. Anna will also ensure patient is provided a Rx to resume her Xarelto. CM available for further assistance. Date Signed: 07/10/2017 04:43 PM Electronically Signed By:Dyana Shanks RN LACE LACE Acuity / Level of Answers: No Care: Did the patient have an inpatient admission? Comorbidities - select Answers: Chronic pulmonary disease all that apply History of falls Opioid dependence / Chronic pain # of Emergency department Answers: 1-2 visits in the last 6 months Social determinants Answers: Mental health diagnosis (anxiety, depression, pers onality disorders, etc.) Score: 13 Date Signed: 07/10/2017 04:48 PM Electronically Signed By:Dyana Shanks RN Intervention Information
== END 2017-07-10 16:30 | disposition left against medical advice (07) ==
LOC: EDUNIT#
DX: M48.02 Spinal stenosis, cervical region (principal); G89.29 Other chronic pain; J44.9 Chronic obstructive pulmonary disease, unspecified; I10 Essential (primary) hypertension; F17.200 Nicotine dependence, unspecified, uncomplicated; Z79.01 Long term (current) use of anticoagulants

== ENCOUNTER 2017-07-13 15:39 | Inpatient (IN) | payer OTHER, MEDICAID ==
--- NOTE | 2017-07-13 16:57 | EDPHY ---
H & P Time Seen by Provider: 07/13/17 16:42 HPI/ROS: CHIEF COMPLAINT: Neck pain, "paralysis " HISTORY OF PRESENT ILLNESS: The patient is a 52-year-old female who presents emergency department multiple complaints. She states that on Sunday she had cervical spine fusion by Dr. Colt Farrell. She left AMA either Sunday or Sunday. She states that she has had increasing pain on the anterior aspect of her neck. It is mildly swollen at the incision site. She states "goes up and down." Since Sunday she has had increasing weakness of her bilateral upper and lower extremities. She is having difficulty using her hands. She is unable to ambulate. She states she came to the emergency department on Sunday via ambulance for neck pain but left AMA due to an appointment. She denies fevers or chills. No difficulty swallowing. No neck stiffness. No shortness of breath. No chest pain. REVIEW OF SYSTEMS: My complete review of systems is negative except as mentioned in the HPI. Past Medical/Surgical History: Includes COPD bipolar disorder, hypertension, hyperlipidemia, P, chronic pain Past surgical history: Includes appendectomy, cervical fusion Social history: The patient smokes. She denies drug use Smoking Status: Current every day smoker Physical Exam: 37.0, 140/102, 101, 18, 98% on room air. GENERAL: Well-appearing, in no acute distress, alert. HEENT: Eyes normal to inspection, no signs of dehydration. No occlusion. NECK: No thyromegaly, no lymphadenopathy, supple.The patient is anterior neck surgical incision site is mildly swollen. There is no active discharge. There is old bruising. RESPIRATORY: Clear to auscultation bilaterally, no rales, rhonchi or wheezing. Normal CVS: Regular rate and rhythm, no rubs, murmurs, or gallops. ABDOMEN: Soft, nontender, nondistended, no organomegaly. BACK: Normal to inspection, no CVA tenderness. SKIN: Normal color, no rash, warm, dry. No pallor. EXTREMITIES: No pedal edema, no calf tenderness, no Homans sign or cords, no joint swelling. NEURO/PSYCH: Alert and oriented x3, normal mood and affect. Normal sensation all extremities. 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 She is unable to dorsiflex her right foot. No obvious cranial nerve deficit. Constitutional: Initial Vital Signs Temperature (C) 37.0 C 07/13/17 16:01 Heart Rate 101 H 07/13/17 16:01 Respiratory Rate 18 07/13/17 16:01 Blood Pressure 148/102 H 07/13/17 16:01 O2 Sat (%) 98 07/13/17 16:01 O2 Delivery Mode Room Air Allergies/Adverse Reactions: morphine Allergy (Mild, Verified 07/07/17 10:00) Rash Iodinated Contrast- Oral and IV Dye Allergy (Verified 07/13/17 19:15) "RASH/SHORT OF BREATH" Sulfa (Sulfonamide Antibiotics) Allergy (Verified 07/13/17 19:15) "ITCHY RASH" Home Medications: Medication Instructions Recorded Captopril 25 mg PO TID 10/18/14 Gemfibrozil [Lopid 600 MG (*)] 600 mg PO BIDAC 10/18/14 DULoxetine [Cymbalta 60 MG (*)] 60 mg PO DAILY 06/29/15 Ranitidine HCl [Zantac] 300 mg PO DAILY 07/11/16 lamoTRIgine [Lamictal] 150 mg PO BID 07/04/17 Methocarbamol [Robaxin 750 mg (*)] 750 mg PO TID #60 tab 07/08/17 oxyCODONE CR [Oxycontin] 80 mg PO BID #6 tab 07/08/17 oxyCODONE IR [Oxycodone Ir (*)] 30 mg PO Q4H PRN #24 tab 07/08/17 Rivaroxaban [Xarelto] 20 mg PO DAILY@18 #0 07/12/17 Hydrochlorothiazide [HCTZ (*)] 25 mg PO DAILY 07/13/17 Nicotine [Nicotine Patch] 2 each TD DAILY PRN 07/13/17 Sennosides/Docusate Sodium 2 each PO BID PRN 07/13/17 [Senna-Docusate Sodium Tablet] Zolpidem Tartrate [Ambien 5MG (*)] 5 mg PO HS PRN 07/13/17 Medical Decision Making - Diagnostics Imaging Results: Imaging Impressions Cervical Spine X-Ray 07/13/17 17:04 Impression: 1. New moderate prevertebral soft tissue swelling extending from C2 to C7. 2. New ACDF at C3-C4 is unchanged. ED Course/Re-evaluation: In the emergency department I discussed possible etiologies with the patient. I answered all her questions. An IV was placed. Laboratory studies were obtained. I reviewed the patient's history. Neurosurgery was contacted. 1700: I discussed case with Dr. Ross. He recommended I obtained plain films AP and lateral of the C-spine. He also recommended MRI. Neurosurgery consult on the patient in the emergency department. Per their evaluation they state that her neuro findings are consistent with her examination previously. MRI cervical spine: Please refer the dictated report by Dr. Villanueva. I discussed case with Dr. Villanueva. I discussed the case with Neurosurgery. I discussed the results with the patient and answered all her questions. She had no change in her neuro exam during her stay. Differential Diagnosis: My differential includes but is not limited to cervical swelling, disc herniation, hematoma, electrolyte abnormality, sugar abnormality Departure - Departure Disposition: [facility] [place] [facility] Clinical Impression: Weakness of both hands Weakness of foot Qualifiers: Laterality: unspecified laterality Qualified Code(s): M21.40 - Flat foot [pes planus] (acquired), unspecified foot Condition: Good
--- NOTE | 2017-07-13 17:29 | ASMTLACE ---
AD # of Emergency department Answers: 3-4 visits in the last 6 months Social determinants Answers: Mental health diagnosis (anxiety, depression, pers onality disorders, etc.) Score: 6 Date Signed: 07/13/2017 05:28 PM Electronically Signed By:Loree Smith RN
[2017-07-13] MEDS ORDERED: diphenhydrAMINE 25 MG CAP PO PRN (17:37)
[2017-07-13] MEDS ORDERED: ONDANSETRON 4 MG/2 ML VIAL IVP PRN (17:37)
[2017-07-13] MEDS ORDERED: MAGNESIUM HYDROXIDE 30 ML UDCUP PO PRN (17:37)
[2017-07-13] MEDS ORDERED: BISACODYL 10 MG SUPP PR PRN (17:37)
[2017-07-13] MEDS ORDERED: LACTULOSE 20 GM/30 ML UDCUP PO PRN (17:37)
[2017-07-13] MEDS ORDERED: POLYETHYLENE GLYCOL 3350 17 GM PKT PO PRN (17:37)
[2017-07-13] MEDS ORDERED: ONDANSETRON DISINTEGRATING 4 MG TAB PO PRN (17:37)
--- NOTE | 2017-07-13 17:55 | ASMTCMCOM ---
CM Note CM Note Notes: Patient returns to the ER with c/o neck swelling/hematoma s/p recent cervical surgery. Patient had left the hospital AMA after her initial surgery, presented back to the ER earlier this week (see CM notes from 07/10/17), and left AMA from the ER despite recommendation for admission Currently, patient is in MRI, Dr. Ross has been contacted per ER physician and plan is for admission. I have left messages with Dr. Beatty #[id number], patient's PCP, and Anna #[phone], Dr. Beatty's lead care manager to inform of patient's return to ER and planned admission per Dr. Ross (neurosurgery) CM will anticiapte and be avaialble to assist patient in follow up care upon discharge. Date Signed: 07/13/2017 05:54 PM Electronically Signed By:Loree Smith RN
[2017-07-13] MEDS ORDERED: NICOTINE 21 MG/24 HR PATCH TD SCH (18:00)
--- NOTE | 2017-07-13 18:07 | GHP ---
[f rep st] HISTORY AND PHYSICAL DATE OF ADMISSION: 07/13/2017 CHIEF COMPLAINT: Weakness in arms and legs, status post recent C3-[address] Antonio. HISTORY OF PRESENT ILLNESS: The patient is a 52-year-old female patient who presented to the emergen cy room today. She had a prior C3-4 anterior cervical diskectomy and fusion by Dr. Paco castle 1 week ago. She tolerated the procedure well, and was progressing with therapies in the hospital s, and then chose to leave the hospital AMA. Since then, she returned to the emergency room once due to difficulty using her arms and hands. She then left the emergency room again AMA. She presents today and states that she can no longer take care of herself at home. Per her report, s he sold her car to pay her rent. She states that she fell last night and the night prior. She state s that she cannot walk and cannot use her hands very well. REVIEW OF SYSTEMS: The patient denies any new numbness or tingling. She states her arms do feel wea ker. She has continued anterior and posterior neck pain. PAST MEDICAL AND SURGICAL HISTORY: Includes COPD, bipolar disorder, nicotine addiction, hypertension , hyperlipidemia, chronic pain, status post cervical fusion approximately 1 week ago, also prior surg ical fusion in 2012, also prior appendectomy. SOCIAL HISTORY: The patient smokes approximately 3 packs per day. She denies any drug use. ALLERGIES: To morphine, iodine contrast, and sulfa. PHYSICAL EXAMINATION: VITAL SIGNS: Blood pressure 148/102, heart rate 101, respirations 18, O2 satu ration is 98% on room air, temperature 37.0 Celsius. GENERAL: This is a 52-year-old female patient. She is resting comfortably in bed. NECK: Incision is clean, dry, and intact. Surgical glue is pr esent over the incision. There is some edema and ecchymosis noted over the incision, but her neck is supple and soft to palpation. There is a superficial hematoma that is palpable. NEUROLOGIC: Crani al nerves 2-12 are grossly intact. Motor examination of the bilateral upper extremities is approxima tely 4/5 for deltoid, triceps and biceps. Hand hair spring cutter are approximately 3/5 bilaterally. Motor exami nation of the bilateral lower extremities is approximately 4+/5 for hip flexion, flexion and extensio n of the knee, and plantar and dorsiflexion. The patient states that she has numbness in her arms an d her legs. There is poor effort on physical examination. LABORATORY: No recent. IMAGING DATA: Cervical spine x-rays and cervical MRI are pending. ASSESSMENT: This is a 52-year-old female patient, status post C3-4 anterior cervical discectomy and fusion approximately [address] Antonio, admitted with what she claims is worsening weakness in her arms and legs. PLAN: I have seen and examined the patient in the emergency room today. Her exam appears consistent with her preoperative exam. She is diffusely weak in her upper and lower extremities, and we feel t his is due to the cord compression she had preoperatively. We have attempted to place this patient t o rehab several times. She has left AMA both times. We will have the patient be admitted and work o n obtaining appropriate placement to rehab. We discussed the importance of nicotine cessation with michael mendez patient while here in the hospital and also discussed that she should not leave AMA once again. Michael mendez patient agreed and states that she will follow directions and will stay in the hospital this time around. Neurosurgery service will continue to follow along with this patient. /[id number]/MODL
[2017-07-13] MEDS ORDERED: GADOBUTROL 10 ML VIAL IVP ONE (18:08)
--- NOTE | 2017-07-13 18:13 | ASMTLACE ---
AD Acuity / Level of Answers: Yes Care: Did the patient have an inpatient admission? # of Emergency department Answers: 3-4 visits in the last 6 months Social determinants Answers: Mental health diagnosis (anxiety, depression, pers onality disorders, etc.) Score: 9 Date Signed: 07/13/2017 06:12 PM Electronically Signed By:Loree Smith RN
[2017-07-13 18:43] LABS: PLATELET COUNT 311 10^3/uL (150-400)
[2017-07-13] MEDS ORDERED: NON-FORMULARY NEW DRUG (Lamotrigine [Lamictal] 150 MG) PO SCH (21:00)
[2017-07-13] MEDS ORDERED: CAPTOPRIL 25 MG PO SCH (22:00)
[2017-07-13] MEDS: ACETAMINOPHEN 500 MG TAB PO SCH (23:58)
[2017-07-13] MEDS: FAMOTIDINE 20 MG TAB PO SCH (23:59)
[2017-07-14] MEDS: lamoTRIgine 100 MG TAB PO SCH ×3 (00:01→21:17)
[2017-07-14] MEDS: METHOCARBAMOL 750 MG TAB PO SCH ×4 (00:02→21:20)
[2017-07-14] MEDS: SENNOSIDES/DOCUSATE SODIUM TAB PO SCH ×3 (00:03→21:18)
[2017-07-14] MEDS: oxyCODONE CR 80 MG TAB PO SCH ×3 (00:03→21:19)
[2017-07-14] MEDS: ACETAMINOPHEN 500 MG TAB PO SCH ×3 (05:56→21:18)
[2017-07-14] MEDS: GEMFIBROZIL 600 MG TAB PO SCH ×2 (08:56→17:07)
[2017-07-14] MEDS: FAMOTIDINE 20 MG TAB PO SCH ×2 (08:56→09:12)
[2017-07-14] MEDS: HYDROCHLOROTHIAZIDE 25 MG TAB PO SCH (08:56)
[2017-07-14] MEDS: DULoxetine 60 MG CAP PO SCH (08:57)
[2017-07-14] MEDS ORDERED: NON-FORMULARY NEW DRUG (Ranitidine Hcl [Zantac] 300 MG) PO SCH (09:00)
[2017-07-14] MEDS: NICOTINE 7 MG/24 HR PATCH TD PRN (10:53)
--- NOTE | 2017-07-14 11:58 | NEUSURGPN ---
Assessment/Plan: 52 yr old s/p ACDF C3-4 approximately one week ago with Dr Antonio now, unable to care for self at home Plan: -Patient went AMA earlier this week post ACDF C3-[address] Antonio -Exam is stable compared to her pre operative exam -Patient expressed desire to obtain a second surgical opinion, I recommended that she could try a [facility] hospital since our practice is the only one serving spine surgery in this hospital. She will think about her options. -Mild superficial hematoma -MRI spine shows stable cord edema at C3-4 with expected post surgical findings -May restart Xarelto this evening -Case management working on placement options, she is ok to dc from our standpoint -Discussed patient with Dr Antonio -Please call neurosurgery with any questions/concerns Subjective: Patient upset with condition of her hands, verbally threatening Objective: AxO x3 Speech clear CB 2-12 grossly intact BUE 4/5 aside from bilateral hand history department chair and intrinsics 3/5-stable from pre operative exam Incision CDI with dermabond, superficial hematoma noted Neuro Check Frequency: per routine Urinary Catheter in Place: No - Physician Discussed Patient with Dr.: Antonio Neurosurgery Physical Exam - Vitals, I&O, Labs I and O 07/13/17 07/14/17 07/15/17 05:59 05:59 05:59 Intake Total 120 Output Total 200 Balance -200 120 Weight 73.028 kg Intake: Oral (ml) 120 Output: Urine (ml) 200 Bedside Commode 200 Other: Intake Quantity Yes Sufficient Number of Voids Bedside Commode 1 1 Vital Signs Temp Pulse Resp BP Pulse Ox 37.3 C 83 16 140/92 H 93 07/14/17 08:00 07/14/17 08:00 07/14/17 08:00 07/14/17 08:00 07/14/17 08:00 Laboratory Results 07/13/17 18:36 07/13/17 18:36 ICD10 Worksheet Patient Problems: Problems Problem Status Onset Weakness of both hands Acute Weakness of foot Acute Pulmonary embolism Active Spinal cord compression Acute
--- NOTE | 2017-07-14 16:15 | ASMTCMCOM ---
CM Note CM Note Notes: Pt wants SNF placement. DOCUMENTATION BILLING CLERK clears pt, OT rec SNF and PT eval pending. There are limited SNFs near [place] and pt wants SNF is [facility], she states any place. Pt is a smoker and they only facility in the area which will allow is [facility], pt states again she is willing to go anywhere and states she is willing to not smoke as well. Referrals sent to [facility] in [place]. Pt has hx leaving hosp AMA. Pt has limited support system. PASRR triggered due to Bipolar diagnosis, PASRR faxed to OBRA coordinator. CM to follow. Date Signed: 07/14/2017 04:14 PM Electronically Signed By:GLENROY Laguna
[2017-07-14] MEDS ORDERED: SENNOSIDES/DOCUSATE SODIUM TAB PO PRN (16:23)
[2017-07-14] MEDS ORDERED: RIVAROXABAN 20 MG TAB PO SCH (18:00)
[2017-07-14] MEDS: LISINOPRIL 10 MG TAB PO SCH ×2 (21:20)
[2017-07-15] MEDS: HYDROmorphONE/DILAUDID 1 MG/ML INJ IVP PRN ×2 (03:36→04:36)
[2017-07-15] MEDS: ACETAMINOPHEN 500 MG TAB PO SCH ×3 (05:46→22:28)
[2017-07-15] MEDS: oxyCODONE CR 80 MG TAB PO SCH ×2 (09:11→21:16)
[2017-07-15] MEDS: GEMFIBROZIL 600 MG TAB PO SCH ×2 (09:11→17:22)
[2017-07-15] MEDS: lamoTRIgine 100 MG TAB PO SCH ×2 (09:11→21:17)
[2017-07-15] MEDS: METHOCARBAMOL 750 MG TAB PO SCH ×3 (09:11→21:16)
[2017-07-15] MEDS: HYDROCHLOROTHIAZIDE 25 MG TAB PO SCH (09:11)
[2017-07-15] MEDS: DULoxetine 60 MG CAP PO SCH (09:11)
[2017-07-15] MEDS: FAMOTIDINE 20 MG TAB PO SCH (09:14)
[2017-07-15] MEDS: SENNOSIDES/DOCUSATE SODIUM TAB PO SCH ×2 (09:20→21:17)
--- NOTE | 2017-07-15 09:40 | NEUSURGPN ---
Assessment/Plan: 52 yr old s/p ACDF C3-4 approximately one week ago with Dr Antonio now, unable to care for self at home Plan: -Patient went AMA earlier this week post ACDF C3-[address] Antonio -Exam is stable compared to her pre operative exam, continued weakness in bilateral diamond expert/intrinsics -Superficial hematoma remains present, will continue to hold Xarelto -MRI spine shows stable cord edema at C3-4 with expected post surgical findings. Discussed findings at length with patient explaining that fluid post operatively is often noted and there is question whether there is a hematoma present. Hand weakness can persist or worsen if fluid is causing her findings. She understands all of the risks of waiting for surgery and wishes to wait to make any decisions. Dr Antonio reviewed MRI as well. I offered surgery to the patient for further decompression of her cervical spine which would involve C2- 5 posterior fusion with C2-4 laminectomy. Again, patient would like to think about her surgical option and not proceed today and until she speaks with her family. She would like to eat today and we agreed to revisit the surgical option in the am. -Case management working on placement options -Discussed patient with Dr Antonio -Please call neurosurgery with any questions/concerns Subjective: Neck pain, continue bilateral hand weakness Objective: AxO x3 Speech clear CB 2-12 grossly intact BUE 4/5 aside from bilateral hand diamond expert and intrinsics 2-3/5-stable from pre operative exam per report Posterior cervical tenderness Incision CDI with dermabond, superficial hematoma noted Neuro Check Frequency: per routine Urinary Catheter in Place: No - Physician Discussed Patient with Dr.: Antonio Neurosurgery Physical Exam - Vitals, I&O, Labs I and O 07/14/17 07/15/17 07/16/17 05:59 05:59 05:59 Intake Total 1400 Output Total 200 500 Balance -200 900 Weight 73.028 kg Intake: Oral (ml) 1400 Output: Urine (ml) 200 500 Bedside Commode 200 500 Other: Intake Quantity Yes Sufficient Number of Voids Bedside Commode 1 1 Vital Signs Temp Pulse Resp BP Pulse Ox 36.6 C 80 16 130/82 H 89 L 07/15/17 07:46 07/15/17 07:46 07/15/17 07:46 07/15/17 07:46 07/15/17 07:46 Laboratory Results 07/13/17 18:36 07/13/17 18:36 ICD10 Worksheet Patient Problems: Problems Problem Status Onset Weakness of both hands Acute Weakness of foot Acute Pulmonary embolism Active Spinal cord compression Acute
[2017-07-15] MEDS: NICOTINE 7 MG/24 HR PATCH TD PRN (10:41)
[2017-07-15] MEDS: LISINOPRIL 10 MG TAB PO SCH (21:16)
[2017-07-16] MEDS: ACETAMINOPHEN 500 MG TAB PO SCH ×3 (05:42→21:18)
[2017-07-16] MEDS: lamoTRIgine 100 MG TAB PO SCH ×2 (08:19→20:14)
[2017-07-16] MEDS: HYDROCHLOROTHIAZIDE 25 MG TAB PO SCH (08:20)
[2017-07-16] MEDS: FAMOTIDINE 20 MG TAB PO SCH (08:21)
[2017-07-16] MEDS: GEMFIBROZIL 600 MG TAB PO SCH ×2 (08:21→17:12)
[2017-07-16] MEDS: oxyCODONE CR 80 MG TAB PO SCH ×2 (08:21→20:15)
[2017-07-16] MEDS: METHOCARBAMOL 750 MG TAB PO SCH ×3 (08:21→21:17)
[2017-07-16] MEDS: DULoxetine 60 MG CAP PO SCH (08:22)
[2017-07-16] MEDS: SENNOSIDES/DOCUSATE SODIUM TAB PO SCH ×2 (08:51→20:14)
--- NOTE | 2017-07-16 11:05 | NEUSURGPN ---
Assessment/Plan: 52 yr old s/p ACDF C3-4 approximately one week ago with Dr Antonio now, unable to care for self at home. Weakness in BUE Plan: -Motor exam declined last evening, Dr Fernandez and myself spoke with patient in presence of RN and plant health care technician on 07/14/[address] Fernandez offered her immediate surgery to decompress her cervical spine. The OR was alerted and ready. Patient refused surgery last evening stating she wanted to wait for her sister. Dr Fernandez explained the urgency to her and she still insisted on not doing surgery last evening. -Patient has spoke with Dr Antonio this am and is wanting to proceed with surgery. -She is NPO. She is scheduled for C2-5 posterior fusion with laminectomies C2-4 -Risks/benefits were discussed at length and consent was signed by patient which was difficult for her due to her hand weakness -Superficial hematoma remains present, Xarleto remains on hold -Case management working on placement options -Discussed patient with Dr Antonio who also saw the patient this am -Please call neurosurgery with any questions/concerns Subjective: patient feels mild improvement in finger strength this am, wants to proceed with surgery Objective: AxO x3 PERRL No droop bilateral deltoids, biceps, triceps 4/5 bilateral valuation manager strength and intrinsics 2/5 BLE 4/5, diffuse mild weakness throughout Incision CDI, superficial hematoma stable Did not assess gait, patient laying in bed Neuro Check Frequency: per routine Urinary Catheter in Place: No - Physician Discussed Patient with Dr.: Antonio Patient Seen by Dr.: Antonio Neurosurgery Physical Exam - Vitals, I&O, Labs I and O 07/15/17 07/16/17 07/17/17 05:59 05:59 05:59 Intake Total 1400 Output Total 500 1500 Balance 900 -1500 Intake: Oral (ml) 1400 Output: Urine (ml) 500 1500 Bedside Commode 500 1500 Other: Intake Quantity Yes Sufficient Number of Voids Bedside Commode 1 1 Vital Signs Temp Pulse Resp BP Pulse Ox 36.7 C 78 17 116/88 H 91 L 07/16/17 08:00 07/16/17 08:00 07/16/17 08:00 07/16/17 08:20 07/16/17 08:00 Laboratory Results 07/13/17 18:36 07/13/17 18:36 ICD10 Worksheet Patient Problems: Problems Problem Status Onset Weakness of both hands Acute Weakness of foot Acute Pulmonary embolism Active Spinal cord compression Acute
--- NOTE | 2017-07-16 14:51 | ASMTCMCOM ---
CM Note CM Note Notes: 07/16/2017 Case Management Note Karen from [facility] visited with pt and accepted pt. Per Karen, pt knows an employee at [facility]. All other SNF referrals were declined. Waiting for PASSR review by OBRA coordinator. Case Management d/c poc: To [facility] pending PASSR review. Case Management to follow for further d/c needs. Date Signed: 07/16/2017 02:50 PM Electronically Signed By:Herlnida Bernardo RN
[2017-07-16] MEDS ORDERED: BUPIVACAINE 0.25% 30 ML SDV ONE ×2 (15:45→15:48)
[2017-07-16] MEDS ORDERED: THROMBIN (BOVINE) 20,000 UNIT VIAL TP ONE (15:46)
[2017-07-16] MEDS ORDERED: BACITRACIN 50,000 UNITS/10 ML SYR IRR ONE (15:47)
[2017-07-16] MEDS ORDERED: AVITENE POWDER 1 GM JAR TP ONE (15:47)
[2017-07-16] MEDS ORDERED: CHLORHEXIDINE GLUC HIBICLENS 118 ML BTL TP ONE (15:47)
[2017-07-16] MEDS ORDERED: ceFAZolin 2 GM/SWFI 2 GM/20 ML SYR IVP ONE (15:52)
--- NOTE | 2017-07-16 15:53 | PDHPUP ---
History & Physical Update H&P update statement: This history and physical update is based on an assessment of the patient which was completed after admission or registration (within 24 hours), but prior to the surgery/procedure. H&P update: H&P reviewed & patient examined, no change in patient's condition since H&P completed
[2017-07-16] MEDS: NICOTINE 7 MG/24 HR PATCH TD PRN (17:26)
[2017-07-16] MEDS: LISINOPRIL 10 MG TAB PO SCH (20:15)
[2017-07-17] MEDS: ACETAMINOPHEN 500 MG TAB PO SCH ×3 (05:48→20:56)
--- NOTE | 2017-07-17 07:26 | NEUSURGPN ---
Assessment/Plan: Assessment: 52 yr old s/p ACDF C3-4 approximately one week ago with Dr Antonio now, unable to care for self at home. Weakness in BUE that is better per patient day to day. She states that she is better today. Plan: -Motor exam declined [address] Fernandez/Regla Sylvester TELECOMMUNICATIONS OFFICER spoke with patient in presence of RN as well as bacteriology technician on 07/14/[address] Fernandez offered her immediate surgery to decompress her cervical spine. The OR was alerted and ready. Patient refused surgery stating she wanted to wait for her sister. Dr Fernandez explained the urgency to her and she still insisted on not doing surgery at the time -Patient has spoke with Dr Antonio yesterday as well and he wanted to proceed with surgery. -She is NPO at this time. She is scheduled for C2-C4 posterior fusion with laminectomies C2-4 -she states that she is better this am and her strength is improving day to day -I spoke with Dr Fernandez and he will discuss with her later this am about final call for surgery today or to watch -Risks/benefits were discussed at length and consent was signed by patient yesterday -Superficial hematoma remains present, Xarleto remains on hold -Case management on board -Discussed patient with Dr Fernandez this am and he will come see her as well -Please call neurosurgery with any questions/concerns Subjective: Awake and alert. NAD. No N/V/D. Pt with continued neck pain and weakness that are both better per her account. Objective: AxO x3 PERRLA No droop LUE 5-/5 globally RUE delt/tri 5-/5, bi 4/5, WE 4-/5, WF5-/5 ELF4-/5 Incision CDI, superficial hematoma stable Did not assess gait, patient laying in bed Neuro Check Frequency: per routine Urinary Catheter in Place: No - Physician Discussed Patient with Dr.: Fernandez Patient Seen by Dr.: Fernandez Neurosurgery Physical Exam - Vitals, I&O, Labs I and O 07/16/17 07/17/17 07/18/17 05:59 05:59 05:59 Intake Total 250 Output Total 1500 650 Balance -1500 -400 Intake: Oral (ml) 250 Output: Urine (ml) 1500 650 Bedside Commode 1500 650 Other: Intake Quantity Yes Sufficient Number of Voids Bedside Commode 1 1 Vital Signs Temp Pulse Resp BP Pulse Ox 36.6 C 73 16 108/58 L 92 07/17/17 04:00 07/17/17 04:00 07/17/17 04:00 07/17/17 04:00 07/17/17 04:00 Laboratory Results 07/13/17 18:36 07/13/17 18:36 ICD10 Worksheet Patient Problems: Problems Problem Status Onset Weakness of both hands Acute Weakness of foot Acute Pulmonary embolism Active Spinal cord compression Acute
[2017-07-17] MEDS ORDERED: ceFAZolin 2 GM/SWFI 2 GM/20 ML SYR IVP ONE (07:45)
[2017-07-17] MEDS: METHOCARBAMOL 750 MG TAB PO SCH ×3 (08:16→20:58)
[2017-07-17] MEDS: oxyCODONE CR 80 MG TAB PO SCH ×2 (08:16→20:57)
[2017-07-17] MEDS: lamoTRIgine 100 MG TAB PO SCH ×2 (08:16→20:55)
[2017-07-17] MEDS: DULoxetine 60 MG CAP PO SCH (08:17)
[2017-07-17] MEDS: FAMOTIDINE 20 MG TAB PO SCH (08:17)
[2017-07-17] MEDS: GEMFIBROZIL 600 MG TAB PO SCH ×2 (12:02→18:05)
[2017-07-17] MEDS: HYDROCHLOROTHIAZIDE 25 MG TAB PO SCH (12:02)
[2017-07-17] MEDS: SENNOSIDES/DOCUSATE SODIUM TAB PO SCH ×2 (12:03→20:57)
[2017-07-17] MEDS: HYDROmorphONE/DILAUDID 1 MG/ML INJ IVP PRN (15:20)
[2017-07-17] MEDS: NICOTINE 7 MG/24 HR PATCH TD PRN (16:28)
--- NOTE | 2017-07-17 16:37 | ASMTCMCOM ---
CM Note CM Note Notes: PT needs surgery to decompress spine, has not been able to participate in OT/PT. Level 1 PASRR received from OBRA coordinator and sent to Cirilo Cantu. Date Signed: 07/17/2017 04:36 PM Electronically Signed By:GLENROY Laguna
[2017-07-17] MEDS: LISINOPRIL 10 MG TAB PO SCH (20:56)
[2017-07-18 03:51] VITALS: RESP 16
[2017-07-18] MEDS: ACETAMINOPHEN 500 MG TAB PO SCH ×2 (05:56→14:17)
--- NOTE | 2017-07-18 07:21 | NEUSURGPN ---
Assessment/Plan: Assessment: 52 yr old s/p ACDF C3-4 approximately one week ago with Dr Antonio admitted with unable to care for self at home. Weakness in BUE that is better per patient day to day. She states that she is better today as well. Plan: -Motor exam declined [address] Fernandez/Regla Sylvester STRATEGY MANAGER spoke with patient in presence of RN as well as plasma processing technician on 07/14/[address] Fernandez offered her immediate surgery to decompress her cervical spine. The OR was alerted and ready. Patient refused surgery stating she wanted to wait for her sister. Dr Fernandez explained the urgency to her and she still insisted on not doing surgery at the time -Patient has spoke with Dr Antonio 2 days ago as well and he wanted to proceed with surgery. -She is NPO at this time but is continuing to improve. She was scheduled for C2 -C4 posterior fusion with laminectomies C2-4 yesterday. Since she is better she can eat and we will work on placement to rehab likely for her -she states that she is better this am and her strength is improving day to day -I spoke with Dr Fernandez and he discussed with her yesterday and again she stated that she is better and will hold off on surgery -Risks/benefits were discussed at length and consent was signed by patient 2 days ago -Superficial hematoma remains present-decreased, Xarleto remains on hold -Case management on board -Discussed patient with Dr Fernandez this am -Please call neurosurgery with any questions/concerns Subjective: Awake and alert. NAD. Pt states that she is better. No taveras/neck/chest/abd or gu complaints. Objective: AAxO x3 PERRLA No droop LUE 5-/5 globally RUE delt/tri 5-/5, bi 4+/5, WE 4/5, WF5-/5 ELF4-/5 Incision CDI, superficial hematoma improved Did not assess gait, patient laying in bed Neuro Check Frequency: per routine Urinary Catheter in Place: No - Physician Discussed Patient with Dr.: Fernandez Neurosurgery Physical Exam - Vitals, I&O, Labs I and O 07/17/17 07/18/17 07/19/17 05:59 05:59 05:59 Intake Total 250 400 Output Total 650 875 Balance -400 -475 Intake: Oral (ml) 250 400 Output: Urine (ml) 650 875 Bedside Commode 650 475 Incontinence 400 Other: Intake Quantity Yes Yes Sufficient Number of Voids Bedside Commode 1 2 Incontinence 1 Vital Signs Temp Pulse Resp BP Pulse Ox 36.8 C 76 16 104/60 93 07/18/17 03:50 07/18/17 03:50 07/18/17 03:50 07/18/17 03:50 07/18/17 03:50 Laboratory Results 07/13/17 18:36 07/13/17 18:36 ICD10 Worksheet Patient Problems: Problems Problem Status Onset Weakness of both hands Acute Weakness of foot Acute Pulmonary embolism Active Spinal cord compression Acute
[2017-07-18 08:00] VITALS: BP 110/68; PULSE 70; TEMP 97.9; O2SAT 90
[2017-07-18] MEDS: lamoTRIgine 100 MG TAB PO SCH (08:02)
[2017-07-18] MEDS: METHOCARBAMOL 750 MG TAB PO SCH (08:03)
[2017-07-18] MEDS: HYDROCHLOROTHIAZIDE 25 MG TAB PO SCH (08:03)
[2017-07-18] MEDS: DULoxetine 60 MG CAP PO SCH (08:03)
[2017-07-18] MEDS: oxyCODONE CR 80 MG TAB PO SCH (08:03)
[2017-07-18] MEDS: GEMFIBROZIL 600 MG TAB PO SCH (08:04)
[2017-07-18] MEDS: FAMOTIDINE 20 MG TAB PO SCH (08:04)
[2017-07-18] MEDS: SENNOSIDES/DOCUSATE SODIUM TAB PO SCH (08:05)
[2017-07-18] MEDS ORDERED: CARISOPRODOL 350 MG TAB PO PRN (10:38)
--- NOTE | 2017-07-18 10:46 | PDIAF ---
- Diagnosis Diagnosis: neck pain, hx of cervical fusion-improving BUE strength Code Status: Full Code - Medication Management Discharge Medications: Medications to Continue on Transfer Captopril 25 mg PO TID 10/18/14 [Last Taken 07/12/17] Gemfibrozil [Lopid 600 MG (*)] 600 mg PO BIDAC 10/18/14 [Last Taken 07/12/17] DULoxetine [Cymbalta 60 MG (*)] 60 mg PO DAILY 06/29/15 [Last Taken 07/12/17] Ranitidine HCl [Zantac] 300 mg PO DAILY 07/11/16 [Last Taken 07/12/17] lamoTRIgine [Lamictal] 150 mg PO BID 07/04/17 [Last Taken 07/12/17] Methocarbamol [Robaxin 750 mg (*)] 750 mg PO TID #60 tab 07/08/17 [Last Taken ] oxyCODONE CR [Oxycontin] 80 mg PO BID #6 tab 07/08/17 [Last Taken 07/10/17] oxyCODONE IR [Oxycodone Ir (*)] 30 mg PO Q4H PRN #24 tab 07/08/17 [Last Taken ] Rivaroxaban [Xarelto] 20 mg PO DAILY@18 #0 07/12/17 [Last Taken 07/04/17] Hydrochlorothiazide [HCTZ (*)] 25 mg PO DAILY 07/13/17 [Last Taken 07/12/17] Nicotine [Nicotine Patch] 2 each TD DAILY PRN 07/13/17 [Last Taken 07/13/17] Sennosides/Docusate Sodium [Senna-Docusate Sodium Tablet] 2 each PO BID PRN [Last Taken 07/12/17] Zolpidem Tartrate [Ambien 5MG (*)] 5 mg PO HS PRN 07/13/17 [Last Taken Unknown] Acetaminophen [Tylenol ES 500 mg (*)] 1,000 mg PO Q8HRS tab 07/18/17 [Last Taken Unknown] Carisoprodol [Soma (*)] 350 mg PO TIDMEAL PRN tab 07/18/17 [Last Taken Unknown] Polyethylene Glycol 3350 [Miralax 17 gm (*)] 17 gm PO DAILY PRN pkt 07/18/17 [ Last Taken Unknown] Nursing Home Antibiotics: none Discharge Medications: Refer to the Discharge Home Medication list for PRN reason. PICC Care - Routine: N/A - Orders Services needed: Registered Nurse, Certified Medical Diagnostic Radiographer, Master Teacher Adult Education , Physical Therapy, Occupational Therapy Oxygen: to keep O2 sat higher than 90% Diet Recommendation: no restrictions on diet Diet Texture: Regular Texture Diet, Thin Liquids, Meds Whole w/Liquids - Follow Up Care Current Providers and Referrals: Nena Beatty MD [Primary Care Provider] - As per Instructions Margarito Fernandez MD [Medical Doctor] - (follow up in 1 week)
--- NOTE | 2017-07-18 16:44 | ASDISCHSUM ---
Discharge Information Plan Status:SNF Medically Cleared to Leave: Discharge Date:07/18/2017 03:46 PM CM D/C Disposition:Group Home Facility ADT D/C Disposition:Group Home Facility Projected Discharge Date:07/14/2017 11:00 AM Transportation at D/C:Wheelchair Van Discharge Delay Reason: Follow-Up Date:07/14/2017 11:00 AM Discharge Slot: Final Diagnosis: Placement Information Referral Type:*Usp/SNF Referral ID:[id number] Provider Name:Cirilo [email or web address] Address 1:[address] Phone Number: Address 2: Fax Number: City:[place] Selection Factors: State:[place] Patient Contact Information Contact Name:STEVEN Relationship:Sister Address: Home Phone: City: [facility] Phone: [facility] Code: Email: Financial Information Financial Class:Medicare Advantage Plans Primary Plan Desc:[facility] [employer] Primary Plan Number:[id number] Secondary Plan Desc:[employer] [place] Secondary Plan Number:[id number] Assessment Information LACE AD # of Emergency department Answers: 3-4 visits in the last 6 months Social determinants Answers: Mental health diagnosis (anxiety, depression, pers onality disorders, etc.) Score: 6 Date Signed: 07/13/2017 05:28 PM Electronically Signed By:Loree Smith RN [facility] Progress Note CM Note CM Note Notes: Patient returns to the ER with c/o neck swelling/hematoma s/p recent cervical surgery. Patient had left the hospital AMA after her initial surgery, presented back to the ER earlier this week (see CM notes from 07/10/17), and left AMA from the ER despite recommendation for admission Currently, patient is in MRI, Dr. Ross has been contacted per ER physician and plan is for admission. I have left messages with Dr. Beatty #[id number], patient's PCP, and Anna #[phone], Dr. Beatty's care advocate to inform of patient's return to ER and planned admission per Dr. Ross (neurosurgery) CM will anticiapte and be avaialble to assist patient in follow up care upon discharge. Date Signed: 07/13/2017 05:54 PM Electronically Signed By:Loree Smith RN LACE AD Acuity / Level of Answers: Yes Care: Did the patient have an inpatient admission? # of Emergency department Answers: 3-4 visits in the last 6 months Social determinants Answers: Mental health diagnosis (anxiety, depression, pers onality disorders, etc.) Score: 9 Date Signed: 07/13/2017 06:12 PM Electronically Signed By:Loree Smith RN [facility] CM Progress Note CM Note CM Note Notes: Pt wants SNF placement. 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 There are limited SNFs near [place] and pt wants SNF is [facility], she states any place. Pt is a smoker and they only facility in the area which will allow is [facility], pt states again she is willing to go anywhere and states she is willing to not smoke as well. Referrals sent to [facility] in [employer]. Pt has hx leaving hosp AMA. Pt has limited support system. PASRR triggered due to Bipolar diagnosis, PASRR faxed to OBRA coordinator. CM to follow. Date Signed: 07/14/2017 04:14 PM Electronically Signed By:GLENROY Laguna [facility] CM Progress Note CM Note CM Note Notes: 07/16/2017 Case Management Note Karen from [facility] visited with pt and accepted pt. Per Karen, pt knows an employee at [facility]. All other SNF referrals were declined. Waiting for PASSR review by OBRA coordinator. Case Management d/c poc: To [facility] pending PASSR review. Case Management to follow for further d/c needs. Date Signed: 07/16/2017 02:50 PM Electronically Signed By:Herlinda Bernardo RN [facility] CM Progress Note CM Note CM Note Notes: PT needs surgery to decompress spine, has not been able to participate in OT/PT. Level 1 PASRR received from OBRA coordinator and sent to [facility]. Date Signed: 07/17/2017 04:36 PM Electronically Signed By:GLENROY Laguna [facility] CM Progress Note CM Note CM Note Notes: Pt medically stable for d/c to [place]. Pt will have follow up w nsg to determine next steps, she reports she is wanting surgery. Orders sent to in [employer]. set up wc pickup for 1500. Date Signed: 07/18/2017 04:43 PM Electronically Signed By:GLENROY Laguna Intervention Information Intervention Type:*IM-Signed Date of Service:07/18/2017 02:18 PM Patient Type:Inpatient Staff Member:Myriam Chavarria Hours: Discipline: Severity: Comment:
== END 2017-07-18 15:46 | DRG 641 ==
LOC: INTOOBSV 17:37 → OBSVTOIN 17:42 → F3N 20:12
PROVIDERS: ADMIT Neurological Surgery; ATTEND Neurological Surgery
DX: R62.7 Adult failure to thrive (principal); M62.81 Muscle weakness (generalized); Z98.1 Arthrodesis status; J44.9 Chronic obstructive pulmonary disease, unspecified; F31.9 Bipolar disorder, unspecified; I10 Essential (primary) hypertension; E78.5 Hyperlipidemia, unspecified; G89.29 Other chronic pain; Z72.0 Tobacco use
CPT/HCPCS: 92610-GN; 97116-GP; 97162-GP; 97166-GO; 97530-GO; 97535-GO; A9585; G8978-GP-CL; G8979-GP-CK; G8987-GO-CM; G8988-GO-CK; G8996-GN-CH; G8997-GN-CH; G8998-GN-CH; J0171; J0690; J1170